=== PATIENT | male | born 1945 | race Caucasian/White ===

== ENCOUNTER 2016-06-26 09:02 | Day surgery (SDC) | payer OTHER, MEDICARE, BC ==
--- NOTE | 2016-06-22 09:25 | EKG REPORT ---
SEVERITY:- ABNORMAL ECG - SINUS RHYTHM RBBB AND LAFB : Confirmed by: Mario Meeks MD 22-Jun-2016 09:25:13
[2016-06-22 09:34] LABS: MEAN CORPUSCULAR HEMOGLOBIN 27.9 pg (27.0-33.4); MEAN CORPUSCULAR HGB CONC 34.2 g/dL (32.0-36.0); MEAN CORPUSCULAR VOLUME 82 fl (80-97); RED BLOOD COUNT 5.39 10^6/uL (4.35-5.55); RED CELL DISTRIBUTION WIDTH 13.8 % (11.5-14.0); WHITE BLOOD COUNT 6.1 10^3/uL (4.0-10.5)
[2016-06-22 09:40] LABS: APPEARANCE,URINE CLEAR; BILIRUBIN,URINE NEGATIVE (NEGATIVE); GLUCOSE, URINE >=500 mg/dL (NEGATIVE); KETONES,URINE NEGATIVE (NEGATIVE); LEUKOCYTE ESTERASE,URINE NEGATIVE (NEGATIVE); NITRITE,URINE NEGATIVE (NEGATIVE); PROTEIN,URINE NEGATIVE (NEGATIVE); URINE SPECIFIC GRAVITY 1.022; UROBILINOGEN,URINE NEGATIVE mg/dL (<2.0)
[2016-06-22 10:04] LABS: ANION GAP 10 (5-19); BLOOD UREA NITROGEN 22 mg/dL (7-20); CALCIUM 10.2 mg/dL (8.4-10.2); CARBON DIOXIDE 32 mmol/L (22-30); CHLORIDE 101 mmol/L (98-107); CREATININE RESULT 0.72 mg/dL (0.52-1.25); GLUCOSE 156 mg/dL (75-110); POTASSIUM 4.7 mmol/L (3.6-5.0); SODIUM 143.3 mmol/L (137-145)
[~2016-06-26 09:02] MED LIST: CLINDAMYCIN 600 MG/D5W RTU 600 MG/50 ML RTUPB IV PRN; LACTATED RINGERS 1000 ML IV PRN; LIDOCAINE 0.5% INJ-PF (5 MG/ML) 50 ML SDV SUBCUT PRN
[2016-06-26] MEDS ORDERED: BUPIVACAINE HCL 0.5 % INJ/PF 30 ML SDV ONE (09:14)
[2016-06-26] MEDS ORDERED: MIDAZOLAM 2 MG/2 ML INJ ONE (09:15)
[2016-06-26] MEDS ORDERED: PROPOFOL INJ 200 MG/20 ML VIAL IV ONE (09:15)
[2016-06-26] MEDS ORDERED: FENTANYL CITRATE INJ/PF 250 MCG/5 ML AMPULE ONE (09:15)
[2016-06-26] MEDS ORDERED: ALBUTEROL SULFATE 0.083% NEB 2.5 MG/3 ML AMPUL NEB ONE (09:15)
[2016-06-26] MEDS ORDERED: DEXMEDETOMIDINE INJ 80 MCG/20 ML VIAL IV ONE (09:15)
[2016-06-26] MEDS ORDERED: PROMETHAZINE HCL INJ 25 MG/1 ML VIAL IV PRN ×2 (09:41)
[2016-06-26] MEDS ORDERED: FENTANYL CITRATE INJ/PF 100 MCG/2 ML AMPUL IV PRN ×3 (09:41)
[2016-06-26] MEDS ORDERED: MORPHINE SULFATE 10 MG/ML INJ IV PRN ×2 (09:41→11:40)
[2016-06-26] MEDS ORDERED: DIPHENHYDRAMINE HCL 50 MG/ML VIAL IV PRN (09:41)
[2016-06-26] MEDS ORDERED: MEPERIDINE HCL/PF INJ 25 MG/1 ML DISP.SYRIN IV PRN (09:41)
[2016-06-26] MEDS ORDERED: OXYCODONE-ACETAMINOPHEN 5-325 MG TABLET PO PRN ×3 (09:41→11:40)
[2016-06-26] MEDS ORDERED: ONDANSETRON HCL INJ/PF 4 MG/2 ML SDV IV PRN (11:40)
--- NOTE | 2016-06-26 11:42 | PDOC DISCHARGE SUMMARY ---
Discharge Summary (SDC) - Discharge Final Diagnosis: ORIF Right Scaphoid Fracture w/ Repair SL Ligament Date of Surgery: 06/26/16 Discharge Date: 06/26/16 Condition: Good Treatment or Instructions: Schedule Follow Up w/ Dr. Jerardo Mcpherson @ [facility] to be seen in 10-14 days or as scheduled [place]: [place]: [place]: Keep splint clean/dry/intact. Ice and elevate May begin finger range of motion attempting to make full fist. Stool softener of choice when on pain medication. Prescriptions: Oxycodone HCl/Acetaminophen [Percocet 5-325 mg Tablet] 1 - 2 tab PO ASDIR PRN # 45 tablet PRN Reason: Referrals: SHRUTHI ZAFAR MD [Primary Care Provider] - Discharge Diet: As Tolerated Respiratory Treatments at Home: Deep Breathing/Coughing, Incentive Spirometer Discharge Activity: No Lifting Over 10 Pounds, No Lifting/Push/Pulling Report the Following to Your Physician Immediately: Fever over 101 Degrees, Unusual Bleeding, Redness, Swelling, Warmth, Increased Soreness, Numbness, Tingling Sensation
--- NOTE | 2016-06-26 11:51 | Operative Report ---
Operative Report DATE OF SURGERY: 06/26/16 PREOPERATIVE DIAGNOSIS: Right Scaphoid Fracture w/ Lunate Avulsion SL Ligament POSTOPERATIVE DIAGNOSIS: Same OPERATION: ORIF Right Scaphoid w/ SL Ligament Repair, Capsulodesis. PIN Neurectomy SURGEON: BEHZAD LEMA ANESTHESIA: GA COMPLICATIONS: None ESTIMATED BLOOD LOSS: Minimal PROCEDURE: Indication for above procedure: Pleasant 70-year-old male who sustained a fall onto his outstretched right wrist and left shoulder. Patient had been following up with me for his left shoulder after surgical arthroscopy. Radiographs were done at the time of injury demonstrating scaphoid waist fracture with possible avulsion fractures of the carpal bones. A CT scan was then done confirming these diagnoses at that point we discussed treatment options given the patient's history of previous scaphoid fracture I recommended operative intervention. Risks and benefits were explained to the patient patient verbalized understanding consented for the procedure. Procedure In Detail: Patient was seen and evaluated in the preoperative holding area. The RIGHT upper extremity was initialized and marked. Patient received 600 mg of clindamycin IV for bacterial prophylaxis. Patient was taken back to the operative room where transferred to the operative table and placed under general anesthesia. Once they were adequately anesthetized a nonsterile tourniquet was placed on the upper extremity. A surgical team debriefing was performed ensuring all instrumentation was available, the surgical procedure was discussed with possible concerns reviewed. The upper extremity was prepped with chlorhexidine and alcohol and draped in a sterile fashion. A timeout was done identifying correct patient, procedure and extremity everyone in attendance agree with this and verbalized no concerns. The extremity was exsanguinated the tourniquet was inflated to 250 mmHg. A longitudinal skin incision was made just ulnar to Listers tubercle. Blunt dissection was performed back to the retinaculum of the extensor tendons and the superficial radial nerve was elevated with a skin flap a radial direction. Any peripheral venous vasculature was carefully coagulated with bipolar cautery. EPL was identified the distal aspect of the retinaculum was released but not transposed. The DRC and DIC capsule was identified. And a Chavez/Livingston type capsulotomy was performed with a radial-based leaflet. I then identified a small avulsion of the scapholunate ligament from the dorsum of the lunate however a full-thickness tear was not appreciated. The small bone fragment was then excised. Any remaining nonviable soft tissue and bone fragments were removed. Under direct visualization the scaphoid fracture was identified and reduced. Utilizing the appropriate K wire for a mini Acumed screw this was placed in the center center position with the starting point just radial to the scapholunate ligament attachment. A second K wire was placed to act as an anti-rotational screw. AP, lateral and oblique fluoroscopy was obtained demonstrating reduction of the scaphoid fracture and appropriate placement of the K wire. I then measured the appropriate sized screw and subtracted 4 mm and thus a 24 mm screw would be the appropriate size. The proximal cortex countersink drill was then used progressing to the full length drill. I then placed a 24 mm mini Acutrak screw which resulted in interfragmentary compression at the fracture site. There is no evidence of screw penetration proximally or distally. The anti-rotational screw was then removed. C-arm fluoroscopy demonstrated compression at the fracture site with appropriate screw placement. With stress there was no evidence of scapholunate widening. Normal scapholunate angle on lateral fluoroscopy. Given the partial disruption of the scapholunate ligament but no dynamic or static instability appreciated on fluoroscopy I do not feel patient required percutaneous pinning and given his age this would cause stiffness. Thus I utilized a 2.4 mm micro-anchor from [employer] this was placed dorsally at the insertion of the scapholunate ligament on the lunate. Utilizing a Cameron-Rik stitch the partial scapholunate ligament tear was secured. The remaining 2 limbs were then passed through the dorsal capsule bringing the dorsal capsule to the lunate to act as a capsulodesis providing further fixation. The wound was then irrigated with normal saline. The capsule was then closed with 2-0 FiberWire and 3-0 Ethibond. The posterior interosseous nerve was identified within the fourth dorsal compartment and 1 cm was excised to aid in postoperative pain control and avoid postoperative neuroma. The wound was once again irrigated with normal saline. The tourniquet was then deflated and compression placed. Any peripheral vasculature was coagulated with bipolar cautery until the wound was dry. 20 mL of 0.5% Marcaine with an appropriate was injected for postoperative pain control. Subcutaneous tissues were closed with interrupted 3-0 Monocryl suture. Skin was closed a running subcuticular 3-0 Monocryl reinforced with Dermabond and Steri-Strips. Patient was placed in a plaster thumb spica splint. Sponge counts, instrument counts, needle counts counts were correct. Patient was then awoken from anesthesia. Transferred from the operating room table to the operating room stretcher. There was no intraoperative complications patient tolerated procedure well stable to PACU. Postoperative plan: Patient will follow-up in the office in 2 weeks. At which point we will obtain out of cast radiographs. Patient will then be transitioned to a thumb spica cast leaving the IP joint free. He will continue this for 6 weeks or until scaphoid union confirmed with CT scan.
[2016-06-26] MEDS ORDERED: ACETAMINOPHEN 100 ML IV ONE (11:53)
[2016-06-26] MEDS ORDERED: SUCCINYLCHOLINE CHLORIDE INJ 200 MG/10 ML VIAL ONE (12:01)
[2016-06-26] MEDS ORDERED: GLYCOPYRROLATE INJ 0.4 MG/2 ML VIAL ONE (12:01)
[2016-06-26] MEDS ORDERED: ONDANSETRON HCL INJ/PF 4 MG/2 ML SDV ONE (12:01)
[2016-06-26] MEDS ORDERED: LIDOCAINE 2% INJ-PF (20 MG/ML) 10 ML AMPUL ONE (12:01)
[2016-06-26 13:01] VITALS: BP 119/61
== END 2016-06-26 12:10 | disposition home or self-care (01) ==
LOC: OROUT 09:02
PROVIDERS: ATTEND Orthopaedic Surgery
PROC: 01B60ZZ Excision of Radial Nerve, Open Approach (ICD-10-PCS; 2016-06-26)
PROC: 0RQN0ZZ Repair Right Wrist Joint, Open Approach (ICD-10-PCS; 2016-06-26)
PROC: 0PSM04Z Reposition Right Carpal with Internal Fixation Device, Open Approach (ICD-10-PCS; principal; 2016-06-26 10:45)
DX: S62.001G Unspecified fracture of navicular [scaphoid] bone of right wrist, subsequent encounter for fracture with delayed healing (principal); X58.XXXD Exposure to other specified factors, subsequent encounter; M25.531 Pain in right wrist; E11.9 Type 2 diabetes mellitus without complications; Z87.11 Personal history of peptic ulcer disease; M25.512 Pain in left shoulder; M25.561 Pain in right knee; Z88.0 Allergy status to penicillin; Z88.2 Allergy status to sulfonamides; Z88.7 Allergy status to serum and vaccine; Z79.4 Long term (current) use of insulin; Z79.84 Long term (current) use of oral hypoglycemic drugs; Z79.899 Other long term (current) drug therapy
CPT/HCPCS: 93005; 36415; 82962; 85027; 80048; 81001; 83036; 71020; 73100; 93010; 25628; 64772; 25320; C1713 ×2; C1769; J2250; J3010; J0330; J2405; J2704; J3490; J0131; 01830

== ENCOUNTER 2016-08-10 19:04 | Inpatient (IN) | payer MEDICARE, BC ==
[2016-08-10] MEDS ORDERED: RINGERS SOLUTION,LACTATED 1,000 ML IV ONE (19:18)
[2016-08-10] MEDS ORDERED: CEFEPIME 2 GM/D5W RTU 50 ML IV ONE (19:19)
[2016-08-10 20:06] LABS: VENOUS BLOOD HCO3 26.1 mmol/L (20-32); VENOUS BLOOD PCO2 34.9 mmHg (35-63); VENOUS BLOOD PH 7.49 (7.30-7.42)
[2016-08-10 20:08] LABS: HEMATOCRIT 35.4 % (37.9-51.0); HGB HCT DIFFERENCE 0.6; MEAN CORPUSCULAR HEMOGLOBIN 27.3 pg (27.0-33.4); MEAN CORPUSCULAR HGB CONC 33.9 g/dL (32.0-36.0); MEAN CORPUSCULAR VOLUME 81 fl (80-97); RED CELL DISTRIBUTION WIDTH 13.9 % (11.5-14.0); WHITE BLOOD COUNT 7.8 10^3/uL (4.0-10.5)
[2016-08-10] MEDS ORDERED: VANCOMYCIN HCL INJ 1000 MG VIAL IV ONE (20:11)
[2016-08-10] MEDS ORDERED: LEVOFLOXACIN 750 MG/D5W RTU 150 ML IV ONE (20:11)
--- NOTE | 2016-08-10 20:11 | ER Document Report ---
ED General - General Chief Complaint: Fever Stated Complaint: POSSIBLE FEVER Notes: Patient is a 70-year-old male with past medical history of hypertension, prostatitis, currently being treated with ciprofloxacin who presents with a fever, cough, sputum production, and lethargy. The patient reports that over the past 2 days he has had a progressively worsening cough and developed a fever today. Family states that patient has had a progressive decline in general over the past 5 days to a week and has been appearing more lethargic and pale. No history of similar symptoms in the past. He has not recently seen his primary care doctor regarding today's concerns although he has been seen for the concerns of acute prostatitis. Nothing has been noted to improve or worsen his symptoms. He has not had any associated vomiting or diarrhea. He has had rigors and chills. TRAVEL OUTSIDE OF THE [place] IN LAST 30 DAYS: No - Related Data Allergies/Adverse Reactions: amoxicillin [Amoxicillin] Allergy (Severe, Verified 08/11/16 00:30) rash Influenza Vacc,Tri 2009 (Live) [From [employer] [id number]] Allergy (Severe, Verified 03/13/16 06:07) n and v Sulfa (Sulfonamide Antibiotics) Allergy (Verified 06/22/16 08:48) rash Home Medications: Current Home Medications Acetaminophen [Tylenol Arthritis 650 mg Tablet] 650 mg PO Q4HP PRN 08/10/16 [ History] Insulin Glargine,Hum.rec.anlog [Lantus Insulin 100 Unit/mL] 55 unit SUBCUT QHS 08/10/16 [History] Metformin HCl 750 mg PO DAILY 08/10/16 [History] Past Medical History - General Information source: Patient, Relative - Social History Smoking Status: Never Smoker Frequency of alcohol use: None Drug Abuse: None Lives with: Spouse/Significant other Family History: Reviewed & Not Pertinent - Past Medical History Cardiac Medical History: Denies: Hx Coronary Artery Disease, Hx Heart Attack, Hx Hypertension Pulmonary Medical History: Denies: Hx Asthma, Hx Bronchitis, Hx COPD - chemical burn to lungs, Hx Pneumonia Neurological Medical History: Denies: Hx Cerebrovascular Accident, Hx Seizures Endocrine Medical History: Reports: Hx Diabetes Mellitus Type 2 GI Medical History: Reports: Hx Ulcer. Denies: Hx Hepatitis, Hx Hiatal Hernia Musculoskeltal Medical History: Reports Hx Arthritis Infectious Medical History: Denies: Hx Hepatitis Past Surgical History: Denies: Hx Open Heart Surgery, Hx Pacemaker - Immunizations Hx Diphtheria, Pertussis, Tetanus Vaccination: Yes Hx Pneumococcal Vaccination: 01/21/16 Review of Systems - Review of Systems Notes: Constitutional: Positive for fever. HENT: Negative for sore throat. Eyes: Negative for visual changes. Cardiovascular: Negative for chest pain. Respiratory: Positive for shortness of breath. Gastrointestinal: Negative for abdominal pain, vomiting or diarrhea. Genitourinary: Positive for dysuria. Musculoskeletal: Negative for back pain. Skin: Negative for rash. Neurological: Negative for headaches, weakness or numbness. 10 point ROS negative except as marked above and in HPI. Physical Exam - Vital signs Vitals: Temp Pulse Resp BP Pulse Ox 100.6 F H 110 H 18 116/59 L 89 L 08/10/16 19:18 08/10/16 19:18 08/10/16 19:18 08/10/16 19:18 08/10/16 19:18 Interpretation: Tachycardic, Hypoxic, Tachypneic, Febrile Notes: PHYSICAL EXAMINATION: GENERAL: Ill in appearance, pale, rigors HEAD: Atraumatic, normocephalic. EYES: Pupils equal round and reactive to light, extraocular movements intact, sclera anicteric, conjunctiva are normal. ENT: nares patent, oropharynx clear without exudates. Dry mucous membranes. NECK: Normal range of motion, supple without lymphadenopathy LUNGS: Breath sounds are globally diminished on the right relative to the left. HEART: Regular tachycardia without murmurs ABDOMEN: Soft, nontender, normoactive bowel sounds. No guarding, no rebound. No masses appreciated. EXTREMITIES: Normal range of motion, trace edema in the bilateral lower extremities is equal and symmetric NEUROLOGICAL: No focal neurological deficits. Moves all extremities spontaneously and on command. PSYCH: Somewhat lethargic but does respond all questions appropriately. SKIN: Warm, Dry, normal turgor, no rashes or lesions noted. Course - Re-evaluation Re-evalutation: 08/10/161939 Patient presents in sepsis likely secondary to a pneumonia based on mild tachypnea, hypoxemia without a history of oxygen dependence, and a fever up to 103.2F as recorded by EMS prior to patient's arrival. He is overall ill appearance at time of assessment and is somewhat lethargic. He has diminished breath sounds on the right particularly in the right base. He does have an oxygen dependence. When I shut his oxygen off and the room he desaturates to 86 % and returned to 95-96% on 2 L by nasal cannula. He has no focal abdominal tenderness, rebound or guarding to suggest acute intra-abdominal pathology as the etiology of today's presentation. No skin findings. He is currently being treated for a possible prostatitis and this could also be an alternative source although this should not be causing hypoxemia or tachypnea. Will begin broad- spectrum antibiotics including cefepime, levofloxacin and vancomycin. He will be started on 2 L of lactated Ringer's wide open. Cultures have been sent as well as a sepsis lactate screen and venous blood gas. Patient will require admission to the hospital. He is in guarded condition at this time and will require frequent reassessments. 08/10/16 20:57 Laboratories demonstrate a lactate elevation at 2.8 consistent with sepsis although not severe sepsis. No leukocytosis. Chest x-ray is read as clear and I agree based on review although again clinically his symptoms are most consistent with a community-acquired pneumonia. His blood pressure has now normalized after receiving a total of a liter of fluid. His heart rate likewise has normalized. Mental status has also improved and he is now conversing more easily. Skin color no longer pale. Patient overall appears much improved at this time relative to initial assessment. Will discuss that with the hospitalist for admission 08/10/16 21:11 I discussed this case with Dr. Christy who is accepted for admission at this time. - Vital Signs Vital signs: Temp Pulse Resp BP Pulse Ox 98.6 F 85 20 111/64 98 08/11/16 00:21 08/11/16 02:00 08/11/16 00:21 08/11/16 00:21 08/11/16 00:21 - Laboratory Result Diagrams: 08/10/16 19:50 08/10/16 19:50 Laboratory results interpreted by me: 08/10/16 08/10/16 08/10/16 19:50 19:50 19:50 Hgb 12.0 L Hct 35.4 L Plt Count 72 L Seg Neuts % (Manual) 94 H Band Neutrophils % 1 L Lymphocytes % (Manual) 3 L Monocytes % (Manual) 2 L Abs Lymphs (Manual) 0.2 L VBG pH VBG pCO2 Sodium 134.8 L Chloride 95 L BUN 50 H Glucose 312 H Lactic Acid 2.8 H Calcium 7.9 L Total Bilirubin 1.6 H Direct Bilirubin 1.1 H AST 71 H Alkaline Phosphatase 252 H Total Protein 5.0 L Albumin 2.4 L Urine Glucose (UA) Urine Blood Urine Urobilinogen Ur Leukocyte Esterase 08/10/16 08/10/16 19:50 19:50 Hgb Hct Plt Count Seg Neuts % (Manual) Band Neutrophils % Lymphocytes % (Manual) Monocytes % (Manual) Abs Lymphs (Manual) VBG pH 7.49 H VBG pCO2 34.9 L Sodium Chloride BUN Glucose Lactic Acid Calcium Total Bilirubin Direct Bilirubin AST Alkaline Phosphatase Total Protein Albumin Urine Glucose (UA) >=500 H Urine Blood LARGE H Urine Urobilinogen 2.0 H Ur Leukocyte Esterase SMALL H - Diagnostic Test Radiology reviewed: Image reviewed, Reports reviewed Radiology results interpreted by me: 08/11/16 03:37 Chest x-ray: No acute infiltrate - EKG Interpretation by Me Additional EKG results interpreted by me: 08/11/16 03:38 Normal sinus rhythm. Rate 95. Right bundle branch block. No ST elevations or depressions. QTC is 483. Critical Care Note - Critical Care Note Total time excluding time spent on procedures (mins): 40 Comments: Critical care time spent obtaining history from patient or surrogate, discussions with consultants, development of treatment plan with patient or surrogate, evaluation of patient's response to treatment, examination of patient , ordering and performing treatments and interventions, ordering and review of laboratory studies, re-evaluation of patient's condition, ordering and review of radiographic studies and review of old charts Discharge - Discharge Clinical Impression: Pneumonia, Hypoxemia Sepsis Qualifiers: Sepsis type: sepsis due to unspecified organism Qualified Code(s): A41.9 - Sepsis, unspecified organism Hypotension Qualifiers: Hypotension type: unspecified hypotension type Qualified Code(s): I95.9 - Hypotension, unspecified Condition: Fair Disposition: ADMITTED INPATIENT Admitting Provider: [facility] Unit Admitted: [facility]
[2016-08-10 20:12] LABS: APPEARANCE,URINE SLIGHTLY-CLOUDY; BILIRUBIN,URINE NEGATIVE (NEGATIVE); GLUCOSE, URINE >=500 mg/dL (NEGATIVE); KETONES,URINE NEGATIVE (NEGATIVE); LEUKOCYTE ESTERASE,URINE SMALL (NEGATIVE); NITRITE,URINE NEGATIVE (NEGATIVE); PROTEIN,URINE NEGATIVE (NEGATIVE); URINE SPECIFIC GRAVITY 1.024
[2016-08-10 20:19] LABS: ALANINE AMINOTRANSFERASE 70 U/L (21-72); ALBUMIN 2.4 g/dL (3.5-5.0); ALKALINE PHOSPHATASE 252 U/L (38-126); ANION GAP 12 (5-19); ASPARTATE AMINO TRANSFERASE 71 U/L (17-59); BILIRUBIN,DIRECT 1.1 mg/dL (0.0-0.4); BILIRUBIN,TOTAL 1.6 mg/dL (0.2-1.3); BLOOD UREA NITROGEN 50 mg/dL (7-20); CALCIUM 7.9 mg/dL (8.4-10.2); CARBON DIOXIDE 28 mmol/L (22-30); CHLORIDE 95 mmol/L (98-107); CREATININE RESULT 0.97 mg/dL (0.52-1.25); GLUCOSE 312 mg/dL (75-110); POTASSIUM 3.6 mmol/L (3.6-5.0); SODIUM 134.8 mmol/L (137-145)
[2016-08-10 20:31] LABS: BAND NEUTROPHILS % (MANUAL) 1 % (3-5); BASOPHILS % (MANUAL) 0 % (0-2); EOSINOPHILS % (MANUAL) 0 % (0-6); LYMPHOCYTES % (MANUAL) 3 % (13-45); TOTAL CELLS COUNTED 100
[2016-08-10 20:32] LABS: MICROCYTOSIS SLIGHT
--- NOTE | 2016-08-10 21:57 | EKG REPORT ---
SEVERITY:- ABNORMAL ECG - SINUS RHYTHM RBBB AND LAFB : Confirmed by: Tess Ramirez MD 10-Aug-2016 21:56:44
[2016-08-10] MEDS: ACETAMINOPHEN 325 MG TABLET PO PRN (22:37)
[2016-08-11] MEDS ORDERED: DEXTROSE 50%-WATER 25 GM/50 ML DISP.SYRIN IV PRN ×2 (00:28)
[2016-08-11] MEDS ORDERED: DEXTROSE 40% GEL 15 GM TUBE PO PRN ×2 (00:28)
[2016-08-11] MEDS ORDERED: GLUCAGON,HUMAN RECOMB 1 MG INJ IM PRN (00:28)
[2016-08-11] MEDS ORDERED: IPRATROPIUM/ALBUTEROL 0.5-2.5 MG/3 ML AMPUL NEB PRN (00:32)
[2016-08-11] MEDS ORDERED: GUAIFENESIN SYRP 200 MG/10 ML UDC PO PRN (00:32)
[2016-08-11 00:41] LABS: ADD ON TESTING BLD IN LAB ACKNOWLEDGE
[2016-08-11 00:57] LABS: MAGNESIUM 2.3 mg/dL (1.6-2.3)
[2016-08-11] MEDS ORDERED: INSULIN GLARGINE,HUM.REC.ANLOG 1,000 UNIT/10 ML UNIT SUBCUT ONE (01:15)
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
[2016-08-11] MEDS: OXYCODONE HCL IR 5 MG TABLET PO PRN ×3 (01:53→17:17)
[2016-08-11] MEDS ORDERED: CEFEPIME INJ 2 GM VIAL ONE (02:46)
[2016-08-11] MEDS ORDERED: CEFEPIME INJ 2 GM VIAL IV PRN (05:00)
[2016-08-11 05:49] LABS: ABSOLUTE LYMPHOCYTES (AUTO) 0.9 10^3/uL (0.5-4.7); ABSOLUTE MONOCYTES (AUTO) 1.1 10^3/uL (0.1-1.4); ABSOLUTE NEUT (AUTO) 9.1 10^3/uL (1.7-8.2); BASOPHILS % (AUTO) 0.1 % (0-2); EOSINOPHILS % (AUTO) 0.4 % (0-6); HEMATOCRIT 32.9 % (37.9-51.0); HEMOGLOBIN 11.3 g/dL (13.5-17.0); LYMPHOCYTES % (AUTO) 7.8 % (13-45); MEAN CORPUSCULAR HEMOGLOBIN 27.4 pg (27.0-33.4); MEAN CORPUSCULAR HGB CONC 34.4 g/dL (32.0-36.0); MEAN CORPUSCULAR VOLUME 80 fl (80-97); MONOCYTES % (AUTO) 9.5 % (3-13); RED BLOOD COUNT 4.13 10^6/uL (4.35-5.55); RED CELL DISTRIBUTION WIDTH 13.7 % (11.5-14.0); SEGMENTED NEUTROPHILS % (AUTO) 82.2 % (42-78); WHITE BLOOD COUNT 11.1 10^3/uL (4.0-10.5)
[2016-08-11] MEDS ORDERED: CEFEPIME 2 GM/D5W RTU 2 GM/50 ML RTUPB IV SCH (06:00)
[2016-08-11 06:01] LABS: ALANINE AMINOTRANSFERASE 96 U/L (21-72); ALBUMIN 2.3 g/dL (3.5-5.0); ALKALINE PHOSPHATASE 259 U/L (38-126); ANION GAP 11 (5-19); ASPARTATE AMINO TRANSFERASE 92 U/L (17-59); BILIRUBIN,DIRECT 0.9 mg/dL (0.0-0.4); BILIRUBIN,TOTAL 1.3 mg/dL (0.2-1.3); BLOOD UREA NITROGEN 45 mg/dL (7-20); CARBON DIOXIDE 28 mmol/L (22-30); CHLORIDE 96 mmol/L (98-107); CREATININE RESULT 0.87 mg/dL (0.52-1.25); GLUCOSE 105 mg/dL (75-110); POTASSIUM 4.1 mmol/L (3.6-5.0); SODIUM 134.9 mmol/L (137-145); TOTAL PROTEIN 4.8 g/dL (6.3-8.2)
[2016-08-11] MEDS: AZITHROMYCIN 500 MG in DEXTROSE 5%-WATER 250 ML IV SCH (09:26)
[2016-08-11] MEDS: ACETAMINOPHEN 325 MG TABLET PO PRN (11:54)
[2016-08-11] MEDS: INSULIN LISPRO 100 UNIT/ML 3 ML VIAL SUBCUT PRN (12:36)
--- NOTE | 2016-08-11 12:54 | PDOC PROGRESS REPORT ---
Subjective Progress Note for:: 08/11/16 Subjective:: The patient is currently lying in bed. Family is present and active in the patient's care. Patient does complain of lower back pain. The patient denies any nausea, vomiting, diarrhea, shortness of breath, dizziness, chest pain, heart palpitations, fevers, or chills. The patient has remained afebrile. Blood pressures have been in a good range. The patient voices no other concerns at this time. Review of systems: The rest of the review of systems is negative. Physical Exam Vital Signs: Temp Pulse Resp BP Pulse Ox 97.9 F 62 16 126/75 H 99 08/11/16 12:00 08/11/16 12:00 08/11/16 12:00 08/11/16 12:00 08/11/16 12:00 Intake & Output 08/09/16 08/10/16 08/11/16 23:59 23:59 23:59 Intake Total 310 Balance 310 Weight 80.2 kg General appearance: PRESENT: no acute distress, cooperative, well-developed, well-nourished Head exam: PRESENT: atraumatic, normocephalic Eye exam: PRESENT: conjunctiva pink, EOMI, PERRLA. ABSENT: scleral icterus Ear exam: PRESENT: normal external ear exam Mouth exam: PRESENT: moist, tongue midline Neck exam: ABSENT: carotid bruit, JVD, lymphadenopathy, thyromegaly Respiratory exam: PRESENT: clear to auscultation cesar, symmetrical, unlabored. ABSENT: rales, rhonchi, tachypnea, wheezes Cardiovascular exam: PRESENT: RRR. ABSENT: diastolic murmur, rubs, systolic murmur Pulses: PRESENT: normal dorsalis pedis pul Vascular exam: PRESENT: normal capillary refill GI/Abdominal exam: PRESENT: normal bowel sounds, soft. ABSENT: distended, guarding, mass, organolmegaly, rebound, tenderness Rectal exam: PRESENT: deferred Extremities exam: PRESENT: full ROM. ABSENT: calf tenderness, clubbing, pedal edema Neurological exam: PRESENT: alert, awake, oriented to person, oriented to place , oriented to time, oriented to situation, CN II-XII grossly intact. ABSENT: motor sensory deficit Psychiatric exam: PRESENT: appropriate affect, normal mood. ABSENT: homicidal ideation, suicidal ideation Skin exam: PRESENT: dry, intact, warm. ABSENT: cyanosis, rash Results Laboratory Results: 08/11/16 04:27 08/11/16 04:27 08/11/16 08/11/16 08/11/16 00:17 04:27 04:27 WBC 11.1 H RBC 4.13 L Hgb 11.3 L Hct 32.9 L MCV 80 MCH 27.4 MCHC 34.4 RDW 13.7 Plt Count 71 L Seg Neutrophils % 82.2 H Lymphocytes % 7.8 L Monocytes % 9.5 Eosinophils % 0.4 Basophils % 0.1 Absolute Neutrophils 9.1 H Absolute Lymphocytes 0.9 Absolute Monocytes 1.1 Absolute Eosinophils 0.0 Absolute Basophils 0.0 Sodium 134.9 L Potassium 4.1 Chloride 96 L Carbon Dioxide 28 Anion Gap 11 BUN 45 H Creatinine 0.87 Est GFR ( Amer) > 60 Est GFR (Non-Af Amer) > 60 Glucose 105 Lactic Acid 1.4 Calcium 8.0 L Total Bilirubin 1.3 AST 92 H ALT 96 H Alkaline Phosphatase 259 H Total Protein 4.8 L Albumin 2.3 L Impressions: Chest X-Ray 08/10/16 20:07 IMPRESSION: NO ACUTE RADIOGRAPHIC FINDING IN THE CHEST. NO SIGNIFICANT CHANGE FROM PRIOR STUDIES. Assessment & Plan - Diagnosis (1) UTI (urinary tract infection) Qualifiers: Urinary tract infection type: site unspecified Is this a current diagnosis for this admission?: YesPlan: Upon review of the records available through the patient's private portal it appears that his urinary tract infection was Klebsiella. Will continue Rocephin for now. Culture here is negative. Apparently the patient also had a renal ultrasound done yesterday at [facility] the patient stated that his verbal results were "fine". (2) Acute encephalopathy Is this a current diagnosis for this admission?: YesPlan: Secondary to #1 this is resolved. (3) Elevated LFTs Is this a current diagnosis for this admission?: YesPlan: Bilirubin actually has improved. Looking back the patient has had 2 Percocet prescriptions in the last couple months. This may be due to acetaminophen. No abdominal tenderness will continue to follow this. (4) Thrombocytopenia Is this a current diagnosis for this admission?: YesPlan: Given findings of elevated LFTs will obtain abdominal ultrasound and follow. (7) Chronic back pain Qualifiers: Back pain location: low back pain Back pain laterality: unspecified Sciatica presence: without sciatica Qualified Code(s): M54.5 - Low back pain; G89.29 - Other chronic pain Is this a current diagnosis for this admission?: Yes (8) Diabetes mellitus type 1 Qualifiers: Diabetes mellitus complication status: with neurologic complications Diabetes mellitus complication detail: with unspecified neuropathy Qualified Code(s): E10.40 - Type 1 diabetes mellitus with diabetic neuropathy, unspecified Is this a current diagnosis for this admission?: Yes (9) S/P lobectomy of lung Is this a current diagnosis for this admission?: Yes - Time Time Spent with patient: 35 or more minutes Medications reviewed and adjusted accordingly: Yes Anticipated discharge: Home Within: within 24 hours, within 48 hours Disposition: The patient is a full code. Pending patient's symptomatology and diagnostic findings will reevaluate in the a.m.
[2016-08-11] MEDS: CEFEPIME HCL 2 GM in DEXTROSE 5%-WATER 50 ML IV SCH (17:20)
[2016-08-11] MEDS: MORPHINE SULFATE 10 MG/ML INJ IV PRN (20:12)
[2016-08-11] MEDS: INSULIN GLARGINE,HUM.REC.ANLOG 300 UNIT/3 ML INSULN.PEN SUBCUT SCH (21:47)
[2016-08-12] MEDS: OXYCODONE HCL IR 5 MG TABLET PO PRN (01:30)
[2016-08-12] MEDS: MORPHINE SULFATE 10 MG/ML INJ IV PRN ×2 (04:44→17:14)
[2016-08-12 05:09] LABS: ALANINE AMINOTRANSFERASE 76 U/L (21-72); ALBUMIN 2.4 g/dL (3.5-5.0); ALKALINE PHOSPHATASE 261 U/L (38-126); ANION GAP 11 (5-19); ASPARTATE AMINO TRANSFERASE 44 U/L (17-59); BILIRUBIN,DIRECT 0.6 mg/dL (0.0-0.4); BILIRUBIN,TOTAL 1.2 mg/dL (0.2-1.3); BLOOD UREA NITROGEN 28 mg/dL (7-20); CALCIUM 8.1 mg/dL (8.4-10.2); CARBON DIOXIDE 28 mmol/L (22-30); CHLORIDE 97 mmol/L (98-107); CREATININE RESULT 0.78 mg/dL (0.52-1.25); GLUCOSE 127 mg/dL (75-110); MAGNESIUM 2.3 mg/dL (1.6-2.3); POTASSIUM 4.4 mmol/L (3.6-5.0); SODIUM 135.9 mmol/L (137-145); TOTAL PROTEIN 4.9 g/dL (6.3-8.2)
[2016-08-12] MEDS: CEFEPIME HCL 2 GM in DEXTROSE 5%-WATER 50 ML IV SCH (05:50)
[2016-08-12 06:40] LABS: HEMATOCRIT 32.1 % (37.9-51.0); HEMOGLOBIN 11.2 g/dL (13.5-17.0); HGB HCT DIFFERENCE 1.5; MEAN CORPUSCULAR HEMOGLOBIN 27.7 pg (27.0-33.4); MEAN CORPUSCULAR HGB CONC 34.8 g/dL (32.0-36.0); MEAN CORPUSCULAR VOLUME 80 fl (80-97); RED BLOOD COUNT 4.04 10^6/uL (4.35-5.55); RED CELL DISTRIBUTION WIDTH 14.4 % (11.5-14.0)
[2016-08-12] MEDS: AZITHROMYCIN 500 MG in DEXTROSE 5%-WATER 250 ML IV SCH (10:18)
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
--- NOTE | 2016-08-12 12:06 | PDOC PROGRESS REPORT ---
Subjective Progress Note for:: 08/12/16 Subjective:: The patient is currently lying in bed. Patient does complain of lower back pain but notes improvement. The patient denies any nausea, vomiting, diarrhea, shortness of breath, dizziness, chest pain, heart palpitations, fevers, or chills. The patient has remained afebrile. Blood pressures have been in a good range. The patient voices no other concerns at this time. Review of systems: The rest of the review of systems is negative. Physical Exam Vital Signs: Temp Pulse Resp BP Pulse Ox 98.2 F 81 16 120/65 99 08/12/16 08:00 08/12/16 07:48 08/12/16 07:48 08/12/16 07:48 08/12/16 07:48 Intake & Output 08/10/16 08/11/16 08/12/16 23:59 23:59 23:59 Intake Total 1080 210 Output Total 900 Balance 1080 -690 Weight 80.2 kg 79.6 kg General appearance: PRESENT: no acute distress, cooperative, well-developed, well-nourished Head exam: PRESENT: atraumatic, normocephalic Eye exam: PRESENT: conjunctiva pink, EOMI, PERRLA. ABSENT: scleral icterus Ear exam: PRESENT: normal external ear exam Mouth exam: PRESENT: moist, tongue midline Neck exam: ABSENT: carotid bruit, JVD, lymphadenopathy, thyromegaly Respiratory exam: PRESENT: clear to auscultation cesar, symmetrical, unlabored. ABSENT: rales, rhonchi, tachypnea, wheezes Cardiovascular exam: PRESENT: RRR. ABSENT: diastolic murmur, rubs, systolic murmur Pulses: PRESENT: normal dorsalis pedis pul Vascular exam: PRESENT: normal capillary refill GI/Abdominal exam: PRESENT: normal bowel sounds, soft. ABSENT: distended, guarding, mass, organolmegaly, rebound, tenderness Rectal exam: PRESENT: deferred Extremities exam: PRESENT: full ROM. ABSENT: calf tenderness, clubbing, pedal edema Neurological exam: PRESENT: alert, awake, oriented to person, oriented to place , oriented to time, oriented to situation, CN II-XII grossly intact. ABSENT: motor sensory deficit Psychiatric exam: PRESENT: appropriate affect, normal mood. ABSENT: homicidal ideation, suicidal ideation Skin exam: PRESENT: dry, intact, warm. ABSENT: cyanosis, rash Results Laboratory Results: 08/12/16 06:16 08/12/16 04:29 08/12/16 08/12/16 08/12/16 04:29 04:29 06:16 WBC Cancelled 9.0 RBC Cancelled 4.04 L Hgb Cancelled 11.2 L Hct Cancelled 32.1 L MCV Cancelled 80 MCH Cancelled 27.7 MCHC Cancelled 34.8 RDW Cancelled 14.4 H Plt Count Cancelled 69 L Sodium 135.9 L Potassium 4.4 Chloride 97 L Carbon Dioxide 28 Anion Gap 11 BUN 28 H Creatinine 0.78 Est GFR ( Amer) > 60 Est GFR (Non-Af Amer) > 60 Glucose 127 H Calcium 8.1 L Magnesium 2.3 Total Bilirubin 1.2 AST 44 ALT 76 H Alkaline Phosphatase 261 H Total Protein 4.9 L Albumin 2.4 L Impressions: Chest X-Ray 08/10/16 20:07 IMPRESSION: NO ACUTE RADIOGRAPHIC FINDING IN THE CHEST. NO SIGNIFICANT CHANGE FROM PRIOR STUDIES. Abdomen Ultrasound 08/11/16 00:00 IMPRESSION: CHOLELITHIASIS WITHOUT SONOGRAPHIC EVIDENCE OF CHOLECYSTITIS. MILD SPLENOMEGALY. Assessment & Plan - Diagnosis (1) UTI (urinary tract infection) Qualifiers: Urinary tract infection type: acute cystitis Hematuria presence: without hematuria Qualified Code(s): N30.00 - Acute cystitis without hematuria Is this a current diagnosis for this admission?: YesPlan: Upon review of the records available through the patient's private portal it appears that his urinary tract infection was Klebsiella. Will transition to Ceftin. Culture here is negative. Apparently the patient also had a renal ultrasound done yesterday at [facility] the patient stated that his verbal results were "fine". (2) Acute encephalopathy Is this a current diagnosis for this admission?: YesPlan: Secondary to #1 this is resolved. (3) Elevated LFTs Is this a current diagnosis for this admission?: YesPlan: Bilirubin actually has improved. Given the elevation alkaline phosphatase and findings on ultrasound splenomegaly discussed the case with oncology will proceed with abdominal CT. (4) Thrombocytopenia Is this a current diagnosis for this admission?: YesPlan: Given findings of elevated LFTs as well did consult hematology (5) Pain in left shoulder Qualifiers: Chronicity: chronic Qualified Code(s): M25.512 - Pain in left shoulder; G89.29 - Other chronic pain Is this a current diagnosis for this admission?: Yes (6) Pain in right elbow Is this a current diagnosis for this admission?: Yes (7) Chronic back pain Qualifiers: Back pain location: low back pain Back pain laterality: unspecified Sciatica presence: without sciatica Qualified Code(s): M54.5 - Low back pain; G89.29 - Other chronic pain Is this a current diagnosis for this admission?: Yes (8) Diabetes mellitus type 1 Qualifiers: Diabetes mellitus complication status: with neurologic complications Diabetes mellitus complication detail: with unspecified neuropathy Qualified Code(s): E10.40 - Type 1 diabetes mellitus with diabetic neuropathy, unspecified Is this a current diagnosis for this admission?: Yes (9) S/P lobectomy of lung Is this a current diagnosis for this admission?: Yes - Time Time Spent with patient: 25-34 minutes Medications reviewed and adjusted accordingly: Yes Anticipated discharge: Home
[2016-08-12] MEDS ORDERED: ONDANSETRON HCL INJ/PF 4 MG/2 ML SDV IV ONE (13:27)
[2016-08-12] MEDS ORDERED: FLUCONAZOLE 200 MG/NS RTU 100 ML IV SCH (18:00)
[2016-08-12] MEDS ORDERED: ERTAPENEM SODIUM 1 GM in NORMAL SALINE 50 ML IV SCH (18:00)
[2016-08-12] MEDS ORDERED: CEFUROXIME 500 MG TABLET PO SCH (18:00)
[2016-08-12] MEDS ORDERED: FLUCONAZOLE 200 MG/NS RTU 100 ML IV ONE (20:16)
[2016-08-12] MEDS ORDERED: ERTAPENEM SODIUM INJ 1 GM VIAL ONE (20:17)
[2016-08-12] MEDS ORDERED: CEFEPIME 1 GM/D5W RTU 50 ML IV SCH (22:00)
[2016-08-12] MEDS ORDERED: CEFEPIME 2 GM/D5W RTU 50 ML IV SCH (22:00)
[2016-08-12] MEDS ORDERED: CEFEPIME INJ 1 GM VIAL IV PRN (22:07)
[2016-08-12] MEDS: INSULIN GLARGINE,HUM.REC.ANLOG 300 UNIT/3 ML INSULN.PEN SUBCUT SCH (22:47)
[2016-08-12] MEDS: ACETAMINOPHEN 325 MG TABLET PO PRN (23:26)
[2016-08-13 07:54] LABS: HEMATOCRIT 32.6 % (37.9-51.0); HEMOGLOBIN 11.2 g/dL (13.5-17.0); MEAN CORPUSCULAR HEMOGLOBIN 27.6 pg (27.0-33.4); MEAN CORPUSCULAR HGB CONC 34.3 g/dL (32.0-36.0); MEAN CORPUSCULAR VOLUME 81 fl (80-97); RED BLOOD COUNT 4.05 10^6/uL (4.35-5.55); RED CELL DISTRIBUTION WIDTH 13.5 % (11.5-14.0); WHITE BLOOD COUNT 8.4 10^3/uL (4.0-10.5)
--- NOTE | 2016-08-13 07:55 | PDOC PROGRESS REPORT ---
Subjective Progress Note for:: 08/13/16 Subjective:: Feeling better this am, CT imaging reviewed and I went over results extensively w/ family spent >35 min in discussion. No evidence malignancy but there was evidence of pyelonephritis. Physical Exam Vital Signs: Temp Pulse Resp BP Pulse Ox 98.9 F 77 16 109/72 100 08/13/16 02:58 08/13/16 02:58 08/13/16 02:58 08/13/16 02:58 08/13/16 02:58 Intake & Output 08/12/16 08/13/16 08/14/16 06:59 06:59 06:59 Intake Total 980 935 Output Total 900 1350 Balance 80 -415 Weight 79.6 kg 78.9 kg General appearance: PRESENT: no acute distress, well-developed, well-nourished Head exam: PRESENT: atraumatic, normocephalic Eye exam: PRESENT: conjunctiva pink, EOMI, PERRLA. ABSENT: scleral icterus Ear exam: PRESENT: normal external ear exam Mouth exam: PRESENT: moist, tongue midline Neck exam: ABSENT: carotid bruit, JVD, lymphadenopathy, thyromegaly Respiratory exam: PRESENT: clear to auscultation cesar. ABSENT: rales, rhonchi, wheezes Cardiovascular exam: PRESENT: RRR. ABSENT: diastolic murmur, rubs, systolic murmur Pulses: PRESENT: normal dorsalis pedis pul Vascular exam: PRESENT: normal capillary refill GI/Abdominal exam: PRESENT: normal bowel sounds, soft. ABSENT: distended, guarding, mass, organolmegaly, rebound, tenderness Rectal exam: PRESENT: deferred Extremities exam: PRESENT: full ROM. ABSENT: calf tenderness, clubbing, pedal edema Neurological exam: PRESENT: alert, awake, oriented to person, oriented to place , oriented to time, oriented to situation, CN II-XII grossly intact. ABSENT: motor sensory deficit Psychiatric exam: PRESENT: appropriate affect, normal mood. ABSENT: homicidal ideation, suicidal ideation Skin exam: PRESENT: dry, intact, warm. ABSENT: cyanosis, rash Results Laboratory Results: 08/12/16 04:29 Iron 28.2 L TIBC 213 L % Saturation 13 Ferritin 833.00 H Vitamin B12 526.0 Impressions: Chest X-Ray 08/10/16 20:07 IMPRESSION: NO ACUTE RADIOGRAPHIC FINDING IN THE CHEST. NO SIGNIFICANT CHANGE FROM PRIOR STUDIES. Abdomen Ultrasound 08/11/16 00:00 IMPRESSION: CHOLELITHIASIS WITHOUT SONOGRAPHIC EVIDENCE OF CHOLECYSTITIS. MILD SPLENOMEGALY. Chest CT 08/12/16 00:00 IMPRESSION: No acute findings in the chest. Abdomen/Pelvis CT 08/12/16 11:21 IMPRESSION: Cholelithiasis. No acute findings. Assessment & Plan - Diagnosis (1) Thrombocytopenia Is this a current diagnosis for this admission?: YesPlan: Likely related to immunosuppression from severe infection, looks like now pt w/ pyelonephritis and probable sepsis. Will monitor, other labs pending and will need f/u in clinic (2) Weight loss, non-intentional Is this a current diagnosis for this admission?: YesPlan: Likely related to recent infection and multiple surgeries recently, no evidence thus far malignancy (3) Pyelonephritis, acute Is this a current diagnosis for this admission?: YesPlan: Pyelonephritis w/ evidence prev of sepsis, now sepsis resolved, con't abx per hospitalist team - Time Time Spent with patient: 35 or more minutes Critical Time spent with patient: 35 or more minutes - Inpatient Certification Based on my medical assessment, after consideration of the patient's comorbidities, presenting symptoms, or acuity I expect that the services needed warrant INPATIENT care.: Yes I certify that my determination is in accordance with my understanding of Medicare's requirements for reasonable and necessary INPATIENT services [42 CFR 412.3e].: Yes Medical Necessity: Need for IV Antibiotics
[2016-08-13 08:00] LABS: ANION GAP 7 (5-19); BLOOD UREA NITROGEN 20 mg/dL (7-20); CALCIUM 7.8 mg/dL (8.4-10.2); CARBON DIOXIDE 31 mmol/L (22-30); CHLORIDE 96 mmol/L (98-107); CREATININE RESULT 0.73 mg/dL (0.52-1.25); GLUCOSE 216 mg/dL (75-110); POTASSIUM 4.5 mmol/L (3.6-5.0); SODIUM 133.6 mmol/L (137-145)
--- NOTE | 2016-08-13 09:38 | PDOC PROGRESS REPORT ---
Subjective Progress Note for:: 08/13/16 Subjective:: The patient is currently lying in bed. Patient does complain of lower back pain but notes improvement. The patient denies any nausea, vomiting, diarrhea, shortness of breath, dizziness, chest pain, heart palpitations, fevers, or chills. The patient spiked a fever overnight. Blood pressures have been in a good range. The patient voices no other concerns at this time. Review of systems: The rest of the review of systems is negative. Physical Exam Vital Signs: Temp Pulse Resp BP Pulse Ox 98.5 F 66 18 121/50 L 99 08/13/16 07:17 08/13/16 07:17 08/13/16 07:17 08/13/16 07:17 08/13/16 07:17 Intake & Output 08/11/16 08/12/16 08/13/16 23:59 23:59 23:59 Intake Total 1080 895 400 Output Total 1250 1000 Balance 7659 -205 -600 Weight 80.2 kg 79.6 kg 78.9 kg General appearance: PRESENT: no acute distress, cooperative, well-developed, well-nourished Head exam: PRESENT: atraumatic, normocephalic Eye exam: PRESENT: conjunctiva pink, EOMI, PERRLA. ABSENT: scleral icterus Ear exam: PRESENT: normal external ear exam Mouth exam: PRESENT: moist, tongue midline Neck exam: ABSENT: carotid bruit, JVD, lymphadenopathy, thyromegaly Respiratory exam: PRESENT: clear to auscultation cesar, symmetrical, unlabored. ABSENT: rales, rhonchi, tachypnea, wheezes Cardiovascular exam: PRESENT: RRR. ABSENT: diastolic murmur, rubs, systolic murmur Pulses: PRESENT: normal dorsalis pedis pul Vascular exam: PRESENT: normal capillary refill GI/Abdominal exam: PRESENT: normal bowel sounds, soft. ABSENT: distended, guarding, mass, organolmegaly, rebound, tenderness Rectal exam: PRESENT: deferred Extremities exam: PRESENT: full ROM. ABSENT: calf tenderness, clubbing, pedal edema Neurological exam: PRESENT: alert, awake, oriented to person, oriented to place , oriented to time, oriented to situation, CN II-XII grossly intact. ABSENT: motor sensory deficit Psychiatric exam: PRESENT: appropriate affect, normal mood. ABSENT: homicidal ideation, suicidal ideation Skin exam: PRESENT: dry, intact, warm. ABSENT: cyanosis, rash Results Laboratory Results: 08/13/16 06:58 08/13/16 06:58 08/12/16 08/13/16 08/13/16 04:29 06:58 06:58 WBC 8.4 RBC 4.05 L Hgb 11.2 L Hct 32.6 L MCV 81 MCH 27.6 MCHC 34.3 RDW 13.5 Plt Count 84 L Sodium 133.6 L Potassium 4.5 Chloride 96 L Carbon Dioxide 31 H Anion Gap 7 BUN 20 Creatinine 0.73 Est GFR ( Amer) > 60 Est GFR (Non-Af Amer) > 60 Glucose 216 H Calcium 7.8 L Iron 28.2 L TIBC 213 L % Saturation 13 Ferritin 833.00 H Vitamin B12 526.0 Impressions: Chest X-Ray 08/10/16 20:07 IMPRESSION: NO ACUTE RADIOGRAPHIC FINDING IN THE CHEST. NO SIGNIFICANT CHANGE FROM PRIOR STUDIES. Abdomen Ultrasound 08/11/16 00:00 IMPRESSION: CHOLELITHIASIS WITHOUT SONOGRAPHIC EVIDENCE OF CHOLECYSTITIS. MILD SPLENOMEGALY. Chest CT 08/12/16 00:00 IMPRESSION: No acute findings in the chest. Abdomen/Pelvis CT 08/12/16 11:21 IMPRESSION: Cholelithiasis. No acute findings. Assessment & Plan - Diagnosis (1) Pyelonephritis, acute Is this a current diagnosis for this admission?: YesPlan: Upon review of the records available through the patient's private portal it appears that his urinary tract infection was Klebsiella. Was able to view sensativities today. Given PCN allergies and Sulfa the only option appears to be Gent. Culture here is negative, but will repeat given re-spike in temperature. (2) Acute encephalopathy Is this a current diagnosis for this admission?: YesPlan: Secondary to #1 this is resolved. (3) Elevated LFTs Is this a current diagnosis for this admission?: YesPlan: Bilirubin actually has improved. Given the elevation alkaline phosphatase and findings on ultrasound splenomegaly discussed the case with hematology. Appreciate input. (4) Thrombocytopenia Is this a current diagnosis for this admission?: YesPlan: Given findings of elevated LFTs as well did consult hematology. Improved. (5) Pain in left shoulder Qualifiers: Chronicity: chronic Qualified Code(s): M25.512 - Pain in left shoulder Is this a current diagnosis for this admission?: Yes (6) Pain in right elbow Is this a current diagnosis for this admission?: Yes (7) Chronic back pain Qualifiers: Back pain location: low back pain Back pain laterality: unspecified Sciatica presence: without sciatica Qualified Code(s): M54.5 - Low back pain; G89.29 - Other chronic pain Is this a current diagnosis for this admission?: Yes (8) Diabetes mellitus type 1 Qualifiers: Diabetes mellitus complication status: with neurologic complications Diabetes mellitus complication detail: with unspecified neuropathy Qualified Code(s): E10.40 - Type 1 diabetes mellitus with diabetic neuropathy, unspecified Is this a current diagnosis for this admission?: Yes (9) S/P lobectomy of lung Is this a current diagnosis for this admission?: Yes - Time Time Spent with patient: 25-34 minutes Medications reviewed and adjusted accordingly: Yes Anticipated discharge: Home Within: within 24 hours, within 48 hours
[2016-08-13] MEDS ORDERED: GENTAMICIN SULFATE 0 MG in DEXTROSE 5%-WATER 100 ML IV NR (09:45)
[2016-08-13] MEDS ORDERED: AZITHROMYCIN 500 MG in DEXTROSE 5%-WATER 250 ML IV SCH (10:00)
[2016-08-13] MEDS ORDERED: CEFEPIME HCL 2 GM in DEXTROSE 5%-WATER 50 ML IV SCH (10:00)
[2016-08-13] MEDS: INSULIN LISPRO 100 UNIT/ML 3 ML VIAL SUBCUT PRN ×2 (12:41→18:18)
[2016-08-13] MEDS ORDERED: GENTAMICIN SULFATE 140 MG in DEXTROSE 5%-WATER 100 ML IV ONE (13:00)
[2016-08-13] MEDS: MORPHINE SULFATE 10 MG/ML INJ IV PRN (14:05)
[2016-08-13] MEDS: ACETAMINOPHEN 325 MG TABLET PO PRN (14:26)
[2016-08-13] MEDS: INSULIN GLARGINE,HUM.REC.ANLOG 300 UNIT/3 ML INSULN.PEN SUBCUT SCH (21:56)
[2016-08-13] MEDS: GENTAMICIN SULFATE 140 MG in DEXTROSE 5%-WATER 100 ML IV SCH (21:56)
[2016-08-14] MEDS: ACETAMINOPHEN 325 MG TABLET PO PRN ×3 (03:05→22:16)
[2016-08-14 05:56] LABS: HEMATOCRIT 31.8 % (37.9-51.0); HGB HCT DIFFERENCE 1.2; MEAN CORPUSCULAR HEMOGLOBIN 27.4 pg (27.0-33.4); MEAN CORPUSCULAR HGB CONC 34.6 g/dL (32.0-36.0); MEAN CORPUSCULAR VOLUME 79 fl (80-97); RED BLOOD COUNT 4.02 10^6/uL (4.35-5.55); RED CELL DISTRIBUTION WIDTH 13.7 % (11.5-14.0); WHITE BLOOD COUNT 11.9 10^3/uL (4.0-10.5)
[2016-08-14 06:13] LABS: ALANINE AMINOTRANSFERASE 55 U/L (21-72); ALBUMIN 2.6 g/dL (3.5-5.0); ALKALINE PHOSPHATASE 250 U/L (38-126); ANION GAP 9 (5-19); ASPARTATE AMINO TRANSFERASE 37 U/L (17-59); BILIRUBIN,DIRECT 0.5 mg/dL (0.0-0.4); BILIRUBIN,TOTAL 1.2 mg/dL (0.2-1.3); BLOOD UREA NITROGEN 18 mg/dL (7-20); CARBON DIOXIDE 28 mmol/L (22-30); CHLORIDE 95 mmol/L (98-107); CREATININE RESULT 0.77 mg/dL (0.52-1.25); GLUCOSE 102 mg/dL (75-110); POTASSIUM 4.2 mmol/L (3.6-5.0); SODIUM 132.1 mmol/L (137-145); TOTAL PROTEIN 5.1 g/dL (6.3-8.2)
[2016-08-14 06:39] LABS: IMMUNOGLOBULIN A 152 mg/dL (61-437); IMMUNOGLOBULIN G 619 mg/dL (700-1600)
[2016-08-14 07:42] LABS: IMMUNOGLOBULIN M 330 mg/dL (20-172)
--- NOTE | 2016-08-14 08:03 | PDOC PROGRESS REPORT ---
Subjective Progress Note for:: 08/14/16 Subjective:: Patient was confused overnight, spiked a fever to 102. His antibiotics were changed yesterday because of continued febrile. He has a sitter now, he is sleeping at this point. In review of his CBC his platelet count has recovered to 116. Physical Exam Vital Signs: Temp Pulse Resp BP Pulse Ox 98.6 F 101 H 18 171/76 H 92 08/14/16 06:43 08/14/16 07:00 08/14/16 03:04 08/14/16 03:04 08/14/16 03:04 Intake & Output 08/13/16 08/14/16 08/15/16 06:59 06:59 06:59 Intake Total 1085 2333 Output Total 1350 1250 Balance -265 1083 Weight 78.9 kg 79.1 kg General appearance: PRESENT: no acute distress, well-developed, well-nourished Head exam: PRESENT: atraumatic, normocephalic Eye exam: PRESENT: conjunctiva pink, EOMI, PERRLA. ABSENT: scleral icterus Ear exam: PRESENT: normal external ear exam Mouth exam: PRESENT: moist, tongue midline Neck exam: ABSENT: carotid bruit, JVD, lymphadenopathy, thyromegaly Respiratory exam: PRESENT: clear to auscultation cesar. ABSENT: rales, rhonchi, wheezes Cardiovascular exam: PRESENT: RRR. ABSENT: diastolic murmur, rubs, systolic murmur Pulses: PRESENT: normal dorsalis pedis pul Vascular exam: PRESENT: normal capillary refill GI/Abdominal exam: PRESENT: normal bowel sounds, soft. ABSENT: distended, guarding, mass, organolmegaly, rebound, tenderness Rectal exam: PRESENT: deferred Extremities exam: PRESENT: full ROM. ABSENT: calf tenderness, clubbing, pedal edema Neurological exam: PRESENT: alert, awake, oriented to person, oriented to place , oriented to time, oriented to situation, CN II-XII grossly intact. ABSENT: motor sensory deficit Psychiatric exam: PRESENT: appropriate affect, normal mood. ABSENT: homicidal ideation, suicidal ideation Skin exam: PRESENT: dry, intact, warm. ABSENT: cyanosis, rash Results Laboratory Results: 08/14/16 05:07 08/14/16 05:07 08/13/16 08/13/16 08/14/16 06:58 06:58 05:07 WBC 8.4 RBC 4.05 L Hgb 11.2 L Hct 32.6 L MCV 81 MCH 27.6 MCHC 34.3 RDW 13.5 Plt Count 84 L Sodium 133.6 L 132.1 L Potassium 4.5 4.2 Chloride 96 L 95 L Carbon Dioxide 31 H 28 Anion Gap 7 9 BUN 20 18 Creatinine 0.73 0.77 Est GFR ( Amer) > 60 > 60 Est GFR (Non-Af Amer) > 60 > 60 Glucose 216 H 102 Calcium 7.8 L 8.0 L Magnesium 2.0 Total Bilirubin 1.2 AST 37 ALT 55 Alkaline Phosphatase 250 H Total Protein 5.1 L Albumin 2.6 L 08/14/16 05:07 WBC 11.9 H RBC 4.02 L Hgb 11.0 L Hct 31.8 L MCV 79 L MCH 27.4 MCHC 34.6 RDW 13.7 Plt Count 116 L Sodium Potassium Chloride Carbon Dioxide Anion Gap BUN Creatinine Est GFR ( Amer) Est GFR (Non-Af Amer) Glucose Calcium Magnesium Total Bilirubin AST ALT Alkaline Phosphatase Total Protein Albumin Impressions: Chest X-Ray 08/10/16 20:07 IMPRESSION: NO ACUTE RADIOGRAPHIC FINDING IN THE CHEST. NO SIGNIFICANT CHANGE FROM PRIOR STUDIES. Abdomen Ultrasound 08/11/16 00:00 IMPRESSION: CHOLELITHIASIS WITHOUT SONOGRAPHIC EVIDENCE OF CHOLECYSTITIS. MILD SPLENOMEGALY. Chest CT 08/12/16 00:00 IMPRESSION: No acute findings in the chest. Abdomen/Pelvis CT 08/12/16 11:21 IMPRESSION: Cholelithiasis. No acute findings. Assessment & Plan - Diagnosis (1) Thrombocytopenia Is this a current diagnosis for this admission?: YesPlan: Secondary to myelosuppression from infection, unfortunately infection seems to be still going on, discussed case with hospitalist, agree that this probably is a gram-negative infection type issue, Klebsiella was the previous organism. It should've been sensitive to the previous antibiotics but we were thinking about the possibility of a previous prostatitis, may be sequestering the bacteria. And patient could've had a low-grade inflammatory/infective type situation ongoing for a while. Regardless, from a platelet standpoint he should recover within the next 1-2 weeks. (2) Weight loss, non-intentional Is this a current diagnosis for this admission?: YesPlan: Does not appear to be malignancy related, probably related to the infection. (3) Pyelonephritis, acute Is this a current diagnosis for this admission?: YesPlan: Continued antibiotics as above, still fairly severe. - Time Time Spent with patient: 25-34 minutes Critical Time spent with patient: 25-34 minutes - Inpatient Certification Based on my medical assessment, after consideration of the patient's comorbidities, presenting symptoms, or acuity I expect that the services needed warrant INPATIENT care.: Yes I certify that my determination is in accordance with my understanding of Medicare's requirements for reasonable and necessary INPATIENT services [42 CFR 412.3e].: Yes Medical Necessity: Need for IV Antibiotics, Risk of Complication if Not Cared For in Hospital
[2016-08-14] MEDS: GENTAMICIN SULFATE 140 MG in DEXTROSE 5%-WATER 100 ML IV SCH ×2 (09:36→22:16)
[2016-08-14 14:40] LABS: FREE KAPPA LIGHT CHAINS 33.12 mg/L (3.30-19.40); FREE LAMBDA LIGHT CHAINS 45.06 mg/L (5.71-26.30)
[2016-08-14 15:04] LABS: KAPPA LAMBDA RATIO 0.74 (0.26-1.65)
--- NOTE | 2016-08-14 19:30 | PDOC PROGRESS REPORT ---
Subjective Progress Note for:: 08/14/16 Subjective:: The patient is currently lying in bed. Patient notes overall improvement in his symptoms. The patient is quite eager for discharge. Shins platelet count has improved significantly. However overnight the patient developed confusion and is agitated. Patient has no recollection of any of this. The patient denies any nausea, vomiting, diarrhea, shortness of breath, dizziness, chest pain, heart palpitations, fevers, or chills. The patient spiked a fever overnight. Blood pressures have been in a good range. The patient voices no other concerns at this time. Review of systems: The rest of the review of systems is negative. Brief history: Mr. Pelaez is a 70-year-old male with no significant past medical history. The patient presented to his primary care provider's office a few days prior to presentation with complaints of urinary hesitancy and dysuria. The patient was diagnosed with prostatitis and UTI. Patient's urine culture came back with Klebsiella. The patient was treated with Cipro however his symptoms do persist and he came to the emergency department for evaluation. Upon presentation to the emergency department the patient was found to have a white count of 11, a temperature of 100.6. The patient was admitted initially started on cefepime. There was much concern over the patient 's penicillin allergy and after discussing back and forth patient has been transitioned to gentamicin. The patient had a significant elevation in his alkaline phosphatase as well as thrombocytopenia and significant weight loss over the past 6 months I discussed the case with Dr. Banegas. The patient was imaged by CT and only findings were consistent with pyelonephritis. Given patient and family uncertainties I did discuss the case with infectious disease and recommendations are noted below. Physical Exam Vital Signs: Temp Pulse Resp BP Pulse Ox 97.9 F 80 19 139/58 H 100 08/14/16 11:24 08/14/16 14:00 08/14/16 11:24 08/14/16 11:24 08/14/16 11:24 Intake & Output 08/12/16 08/13/16 08/14/16 23:59 23:59 23:59 Intake Total 895 2448 1293 Output Total 1250 1500 750 Balance -355 948 543 Weight 79.6 kg 78.9 kg 79.1 kg General appearance: PRESENT: no acute distress, cooperative, well-developed, well-nourished Head exam: PRESENT: atraumatic, normocephalic Eye exam: PRESENT: conjunctiva pink, EOMI, PERRLA. ABSENT: scleral icterus Ear exam: PRESENT: normal external ear exam Mouth exam: PRESENT: moist, tongue midline Neck exam: ABSENT: carotid bruit, JVD, lymphadenopathy, thyromegaly Respiratory exam: PRESENT: clear to auscultation cesar, symmetrical, unlabored. ABSENT: rales, rhonchi, tachypnea, wheezes Cardiovascular exam: PRESENT: RRR. ABSENT: diastolic murmur, rubs, systolic murmur Pulses: PRESENT: normal dorsalis pedis pul Vascular exam: PRESENT: normal capillary refill GI/Abdominal exam: PRESENT: normal bowel sounds, soft. ABSENT: distended, guarding, mass, organolmegaly, rebound, tenderness Rectal exam: PRESENT: deferred Extremities exam: PRESENT: full ROM. ABSENT: calf tenderness, clubbing, pedal edema Neurological exam: PRESENT: alert, awake, oriented to person, oriented to place , oriented to time, oriented to situation, CN II-XII grossly intact. ABSENT: motor sensory deficit Psychiatric exam: PRESENT: appropriate affect, normal mood. ABSENT: homicidal ideation, suicidal ideation Skin exam: PRESENT: dry, intact, warm. ABSENT: cyanosis, rash Results Laboratory Results: 08/14/16 05:07 08/14/16 05:07 08/14/16 08/14/16 05:07 05:07 WBC 11.9 H RBC 4.02 L Hgb 11.0 L Hct 31.8 L MCV 79 L MCH 27.4 MCHC 34.6 RDW 13.7 Plt Count 116 L Sodium 132.1 L Potassium 4.2 Chloride 95 L Carbon Dioxide 28 Anion Gap 9 BUN 18 Creatinine 0.77 Est GFR ( Amer) > 60 Est GFR (Non-Af Amer) > 60 Glucose 102 Calcium 8.0 L Magnesium 2.0 Total Bilirubin 1.2 AST 37 ALT 55 Alkaline Phosphatase 250 H Total Protein 5.1 L Albumin 2.6 L Impressions: Chest X-Ray 08/10/16 20:07 IMPRESSION: NO ACUTE RADIOGRAPHIC FINDING IN THE CHEST. NO SIGNIFICANT CHANGE FROM PRIOR STUDIES. Abdomen Ultrasound 08/11/16 00:00 IMPRESSION: CHOLELITHIASIS WITHOUT SONOGRAPHIC EVIDENCE OF CHOLECYSTITIS. MILD SPLENOMEGALY. Chest CT 08/12/16 00:00 IMPRESSION: No acute findings in the chest. Abdomen/Pelvis CT 08/12/16 11:21 IMPRESSION: Cholelithiasis. No acute findings. Assessment & Plan - Diagnosis (1) Pyelonephritis, acute Is this a current diagnosis for this admission?: YesPlan: Discussed the case with Dr. Rodriguez at infectious disease [facility] which was an agreement of the current treatment plan. Recommendations been made that if the patient remains afebrile overnight he can be discharged in the morning on a 10 day course of Keflex. (2) Acute encephalopathy Is this a current diagnosis for this admission?: YesPlan: Secondary to #1 this is resolved. (3) Elevated LFTs Is this a current diagnosis for this admission?: YesPlan: Bilirubin actually has improved. Given the elevation alkaline phosphatase and findings on ultrasound splenomegaly discussed the case with hematology. Appreciate input. (4) Thrombocytopenia Is this a current diagnosis for this admission?: YesPlan: Given findings of elevated LFTs as well did consult hematology. Improving. (5) Pain in left shoulder Qualifiers: Chronicity: chronic Qualified Code(s): M25.512 - Pain in left shoulder Is this a current diagnosis for this admission?: Yes (6) Pain in right elbow Is this a current diagnosis for this admission?: Yes (7) Chronic back pain Qualifiers: Back pain location: low back pain Back pain laterality: unspecified Sciatica presence: without sciatica Qualified Code(s): M54.5 - Low back pain; G89.29 - Other chronic pain Is this a current diagnosis for this admission?: Yes (8) Diabetes mellitus type 1 Qualifiers: Diabetes mellitus complication status: with neurologic complications Diabetes mellitus complication detail: with unspecified neuropathy Qualified Code(s): E10.40 - Type 1 diabetes mellitus with diabetic neuropathy, unspecified Is this a current diagnosis for this admission?: Yes (9) S/P lobectomy of lung Is this a current diagnosis for this admission?: Yes - Time Time Spent with patient: 35 or more minutes Medications reviewed and adjusted accordingly: Yes Anticipated discharge: Home Within: within 48 hours Disposition: The patient is a full code. Pending patient's symptomatology and diagnostic findings will reevaluate in the a.m.
[2016-08-14 22:08] LABS: CREATININE RESULT 0.86 mg/dL (0.52-1.25)
[2016-08-14 22:14] LABS: GENTAMICIN-TROUGH 1.6 ug/mL (<2.0)
[2016-08-15] MEDS ORDERED: INSULIN GLARGINE,HUM.REC.ANLOG 300 UNIT/3 ML INSULN.PEN SUBCUT ONE (00:46)
[2016-08-15] MEDS: INSULIN GLARGINE,HUM.REC.ANLOG 300 UNIT/3 ML INSULN.PEN SUBCUT SCH (00:50)
[2016-08-15 01:37] LABS: GENTAMICIN-PEAK 6.5 ug/mL (5.0-10.0)
--- NOTE | 2016-08-15 08:33 | PDOC PROGRESS REPORT ---
Subjective Progress Note for:: 08/15/16 Subjective:: Patient less confused over the last 24 hours, low-grade fevers Physical Exam Vital Signs: Temp Pulse Resp BP Pulse Ox 99.0 F 88 16 148/63 H 100 08/15/16 07:38 08/15/16 07:38 08/15/16 07:38 08/15/16 07:38 08/15/16 07:38 Intake & Output 08/14/16 08/15/16 08/16/16 06:59 06:59 06:59 Intake Total 2333 2050 Output Total 1250 1100 Balance 1083 950 Weight 79.1 kg 78.2 kg General appearance: PRESENT: no acute distress, well-developed, well-nourished Head exam: PRESENT: atraumatic, normocephalic Eye exam: PRESENT: conjunctiva pink, EOMI, PERRLA. ABSENT: scleral icterus Ear exam: PRESENT: normal external ear exam Mouth exam: PRESENT: moist, tongue midline Neck exam: ABSENT: carotid bruit, JVD, lymphadenopathy, thyromegaly Respiratory exam: PRESENT: clear to auscultation cesar. ABSENT: rales, rhonchi, wheezes Cardiovascular exam: PRESENT: RRR. ABSENT: diastolic murmur, rubs, systolic murmur Pulses: PRESENT: normal dorsalis pedis pul Vascular exam: PRESENT: normal capillary refill GI/Abdominal exam: PRESENT: normal bowel sounds, soft. ABSENT: distended, guarding, mass, organolmegaly, rebound, tenderness Rectal exam: PRESENT: deferred Extremities exam: PRESENT: full ROM. ABSENT: calf tenderness, clubbing, pedal edema Neurological exam: PRESENT: alert, awake, oriented to person, oriented to place , oriented to time, oriented to situation, CN II-XII grossly intact. ABSENT: motor sensory deficit Psychiatric exam: PRESENT: appropriate affect, normal mood. ABSENT: homicidal ideation, suicidal ideation Skin exam: PRESENT: dry, intact, warm. ABSENT: cyanosis, rash Results Laboratory Results: 08/14/16 05:07 08/14/16 21:45 08/14/16 21:45 Creatinine 0.86 Est GFR ( Amer) > 60 Est GFR (Non-Af Amer) > 60 Impressions: Chest X-Ray 08/10/16 20:07 IMPRESSION: NO ACUTE RADIOGRAPHIC FINDING IN THE CHEST. NO SIGNIFICANT CHANGE FROM PRIOR STUDIES. Abdomen Ultrasound 08/11/16 00:00 IMPRESSION: CHOLELITHIASIS WITHOUT SONOGRAPHIC EVIDENCE OF CHOLECYSTITIS. MILD SPLENOMEGALY. Chest CT 08/12/16 00:00 IMPRESSION: No acute findings in the chest. Abdomen/Pelvis CT 08/12/16 11:21 IMPRESSION: Cholelithiasis. No acute findings. Assessment & Plan - Diagnosis (1) Thrombocytopenia Is this a current diagnosis for this admission?: YesPlan: platelet count recovering, secondary to myelosuppression, thus far workup is negative for malignancy (2) Weight loss, non-intentional Is this a current diagnosis for this admission?: YesPlan: Don't believe there is any malignancy ongoing, myeloma labs thus far are non- specific. Today discuss this with family, spent about 40 minutes in discussion (3) Pyelonephritis, acute Is this a current diagnosis for this admission?: YesPlan: Improving, continue antibiotics per hospitalist team - Time Time Spent with patient: 35 or more minutes Critical Time spent with patient: 35 or more minutes
[2016-08-15] MEDS: ACETAMINOPHEN 325 MG TABLET PO PRN (09:08)
[2016-08-15] MEDS: GENTAMICIN SULFATE 140 MG in DEXTROSE 5%-WATER 100 ML IV SCH (09:09)
--- NOTE | 2016-08-15 11:28 | PDOC DISCHARGE SUMMARY ---
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 Free [place] LC, Quant Free Lambda LC, Quant Free [place]/Lambda Ratio Influenza A (Rapid) Influenza B (Rapid) Slides for Path Review 08/14/16 08/14/16 08/14/16 15:50 21:45 21:45 WBC RBC Hgb Hct MCV MCH MCHC RDW Plt Count Total Counted Seg Neutrophils % Seg Neuts % (Manual) Band Neutrophils % Lymphocytes % Lymphocytes % (Manual) Monocytes % Monocytes % (Manual) Eosinophils % Eosinophils % (Manual) Basophils % Basophils % (Manual) Absolute Neutrophils Abs Neuts (Manual) Absolute Lymphocytes Abs Lymphs (Manual) Absolute Monocytes Abs Monocytes (Manual) Absolute Eosinophils Absolute Eos (Manual) Absolute Basophils Abs Basophils (Manual) Platelet Estimate Large Platelets Platelet Comment Microcytosis ESR VBG pH VBG pCO2 VBG HCO3 VBG Base Excess Sodium Potassium Chloride Carbon Dioxide Anion Gap BUN Creatinine 0.86 Est GFR ( Amer) > 60 Est GFR (Non-Af Amer) > 60 Glucose POC Glucose 163 H Lactic Acid Calcium Magnesium Iron TIBC % Saturation Ferritin Total Bilirubin Direct Bilirubin Indirect Bilirubin Neonat Total Bilirubin AST ALT Alkaline Phosphatase Total Protein Albumin Vitamin B12 Immunoglobulin A Immunoglobulin G Immunoglobulin M Urine Color Urine Appearance Urine pH Ur Specific [place] Urine Protein Urine Glucose (UA) Urine Ketones Urine Blood Urine Nitrite Urine Bilirubin Urine Urobilinogen Ur Leukocyte Esterase Urine WBC (Auto) Urine RBC (Auto) Squamous Epi Cells Auto Urine Mucus (Auto) Urine Ascorbic Acid Dose Start Time Dose Stop Time Time Trough Drawn 2145 Time Peak Drawn Gentamicin Peak Gentamicin Trough 1.6 Anti-Nuclear Antibody Free [place] LC, Quant Free Lambda LC, Quant Free [place]/Lambda Ratio Influenza A (Rapid) Influenza B (Rapid) Slides for Path Review 08/14/16 08/15/16 08/15/16 22:32 00:35 06:13 WBC RBC Hgb Hct MCV MCH MCHC RDW Plt Count Total Counted Seg Neutrophils % Seg Neuts % (Manual) Band Neutrophils % Lymphocytes % Lymphocytes % (Manual) Monocytes % Monocytes % (Manual) Eosinophils % Eosinophils % (Manual) Basophils % Basophils % (Manual) Absolute Neutrophils Abs Neuts (Manual) Absolute Lymphocytes Abs Lymphs (Manual) Absolute Monocytes Abs Monocytes (Manual) Absolute Eosinophils Absolute Eos (Manual) Absolute Basophils Abs Basophils (Manual) Platelet Estimate Large Platelets Platelet Comment Microcytosis ESR VBG pH VBG pCO2 VBG HCO3 VBG Base Excess Sodium Potassium Chloride Carbon Dioxide Anion Gap BUN Creatinine Est GFR ( Amer) Est GFR (Non-Af Amer) Glucose POC Glucose 201 H 64 L Lactic Acid Calcium Magnesium Iron TIBC % Saturation Ferritin Total Bilirubin Direct Bilirubin Indirect Bilirubin Neonat Total Bilirubin AST ALT Alkaline Phosphatase Total Protein Albumin Vitamin B12 Immunoglobulin A Immunoglobulin G Immunoglobulin M Urine Color Urine Appearance Urine pH Ur Specific [place] Urine Protein Urine Glucose (UA) Urine Ketones Urine Blood Urine Nitrite Urine Bilirubin Urine Urobilinogen Ur Leukocyte Esterase Urine WBC (Auto) Urine RBC (Auto) Squamous Epi Cells Auto Urine Mucus (Auto) Urine Ascorbic Acid Dose Start Time 2216 Dose Stop Time 2355 Time Trough Drawn Time Peak Drawn 0035 Gentamicin Peak 6.5 Gentamicin Trough Anti-Nuclear Antibody Free [place] LC, Quant Free Lambda LC, Quant Free [place]/Lambda Ratio Influenza A (Rapid) Influenza B (Rapid) Slides for Path Review 08/15/16 06:51 WBC RBC Hgb Hct MCV MCH MCHC RDW Plt Count Total Counted Seg Neutrophils % Seg Neuts % (Manual) Band Neutrophils % Lymphocytes % Lymphocytes % (Manual) Monocytes % Monocytes % (Manual) Eosinophils % Eosinophils % (Manual) Basophils % Basophils % (Manual) Absolute Neutrophils Abs Neuts (Manual) Absolute Lymphocytes Abs Lymphs (Manual) Absolute Monocytes Abs Monocytes (Manual) Absolute Eosinophils Absolute Eos (Manual) Absolute Basophils Abs Basophils (Manual) Platelet Estimate Large Platelets Platelet Comment Microcytosis ESR VBG pH VBG pCO2 VBG HCO3 VBG Base Excess Sodium Potassium Chloride Carbon Dioxide Anion Gap BUN Creatinine Est GFR ( Amer) Est GFR (Non-Af Amer) Glucose POC Glucose 78 Lactic Acid Calcium Magnesium Iron TIBC % Saturation Ferritin Total Bilirubin Direct Bilirubin Indirect Bilirubin Neonat Total Bilirubin AST ALT Alkaline Phosphatase Total Protein Albumin Vitamin B12 Immunoglobulin A Immunoglobulin G Immunoglobulin M Urine Color Urine Appearance Urine pH Ur Specific [place] Urine Protein Urine Glucose (UA) Urine Ketones Urine Blood Urine Nitrite Urine Bilirubin Urine Urobilinogen Ur Leukocyte Esterase Urine WBC (Auto) Urine RBC (Auto) Squamous Epi Cells Auto Urine Mucus (Auto) Urine Ascorbic Acid Dose Start Time Dose Stop Time Time Trough Drawn Time Peak Drawn Gentamicin Peak Gentamicin Trough Anti-Nuclear Antibody Free [place] LC, Quant Free Lambda LC, Quant Free [place]/Lambda Ratio Influenza A (Rapid) Influenza B (Rapid) Slides for Path Review EKG Comments: NSR RBBB LAHB Impressions: Chest X-Ray 08/10/16 20:07 IMPRESSION: NO ACUTE RADIOGRAPHIC FINDING IN THE CHEST. NO SIGNIFICANT CHANGE FROM PRIOR STUDIES. Abdomen Ultrasound 08/11/16 00:00 IMPRESSION: CHOLELITHIASIS WITHOUT SONOGRAPHIC EVIDENCE OF CHOLECYSTITIS. MILD SPLENOMEGALY. Chest CT 08/12/16 00:00 IMPRESSION: No acute findings in the chest. Abdomen/Pelvis CT 08/12/16 11:21 IMPRESSION: Cholelithiasis. No acute findings. Plan Discharge Plan: Discharged home on 10 days of Keflex Follow-up with primary care Follow up with Dr. Banegas as planned Time Spent: Greater than 30 Minutes
[2016-08-15 11:40] LABS: ALBUMIN 3 2.1 g/dL (2.9-4.4); ALPHA-1-GLOBULIN 0.4 g/dL (0.0-0.4); ALPHA-2-GLOBULIN 3 0.8 g/dL (0.4-1.0); BETA GLOBULIN 0.7 g/dL (0.7-1.3); GLOBULIN TTL 2.6 g/dL (2.2-3.9); IMMUNOGLOBULIN A 155 mg/dL (61-437); IMMUNOGLOBULIN G 617 mg/dL (700-1600); IMMUNOGLOBULIN M 322 mg/dL (20-172); MONOCLONAL-SPIKE Not Observed g/dL (Not Observed); PROTEIN TOTAL SERUM 4.7 g/dL (6.0-8.5)
[2016-08-15] MEDS ORDERED: CEPHALEXIN 500 MG CAPSULE PO ONE (13:00)
[2016-08-15 14:31] VITALS: BP 134/52
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
== END 2016-08-15 15:19 | disposition home or self-care (01) | DRG 689 ==
LOC: ER 19:04 → UNDOADMIN 21:18 → EH 21:18 → 3W 08-11 00:17 → EH 08-11 00:17
PROVIDERS: ADMIT Family Medicine; ATTEND Family Medicine
DX: N10 Acute pyelonephritis (principal); G93.40 Encephalopathy, unspecified; D69.59 Other secondary thrombocytopenia; M19.90 Unspecified osteoarthritis, unspecified site; E10.40 Type 1 diabetes mellitus with diabetic neuropathy, unspecified; M54.9 Dorsalgia, unspecified; G89.29 Other chronic pain; M25.512 Pain in left shoulder; I10 Essential (primary) hypertension; B95.4 Other streptococcus as the cause of diseases classified elsewhere; L30.9 Dermatitis, unspecified; R63.4 Abnormal weight loss; H91.90 Unspecified hearing loss, unspecified ear; N41.9 Inflammatory disease of prostate, unspecified; Z88.0 Allergy status to penicillin; Z88.2 Allergy status to sulfonamides; Z87.11 Personal history of peptic ulcer disease; Z88.7 Allergy status to serum and vaccine; Z79.84 Long term (current) use of oral hypoglycemic drugs; Z79.899 Other long term (current) drug therapy; Z90.2 Acquired absence of lung [part of]; Z79.4 Long term (current) use of insulin
CPT/HCPCS: 36415; 71010; 71260; 74176; 74177; 76700; 80048; 80053; 80170; 81001; 82565; 82607; 82728; 82784; 82803; 82962; 83540; 83550; 83605; 83735; 83883; 85025; 85027; 85652; 86038; 86320; 87040; 87086; 87804; 88184; 88185; 93005; 93010; 94799; 96365; 96367; 96375; 99291; J0456; J0692; J1450; J1580; J1815; J1956; J2270; J3370; J3490; J7060; J7120

== ENCOUNTER 2016-09-09 10:56 | Emergency (ER) | payer MEDICARE, BC ==
[2016-09-09 11:13] VITALS: BP 98/55
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
[2016-09-09] MEDS: NORMAL SALINE 1000 ML 1,000 ML IV PRN ×2 (12:28→13:06)
[2016-09-09 12:51] LABS: ABSOLUTE EOSINOPHILS # (AUTO) 0.1 10^3/uL (0.0-0.6); ABSOLUTE LYMPHOCYTES (AUTO) 1.3 10^3/uL (0.5-4.7); ABSOLUTE MONOCYTES (AUTO) 0.5 10^3/uL (0.1-1.4); ABSOLUTE NEUT (AUTO) 4.3 10^3/uL (1.7-8.2); BASOPHILS % (AUTO) 0.4 % (0-2); EOSINOPHILS % (AUTO) 2.1 % (0-6); HEMATOCRIT 37.7 % (37.9-51.0); HEMOGLOBIN 12.6 g/dL (13.5-17.0); HGB HCT DIFFERENCE 0.1; LYMPHOCYTES % (AUTO) 20.2 % (13-45); MEAN CORPUSCULAR HEMOGLOBIN 27.2 pg (27.0-33.4); MEAN CORPUSCULAR HGB CONC 33.3 g/dL (32.0-36.0); MEAN CORPUSCULAR VOLUME 82 fl (80-97); MONOCYTES % (AUTO) 8.7 % (3-13); RED BLOOD COUNT 4.62 10^6/uL (4.35-5.55); RED CELL DISTRIBUTION WIDTH 15.8 % (11.5-14.0); SEGMENTED NEUTROPHILS % (AUTO) 68.6 % (42-78); WHITE BLOOD COUNT 6.2 10^3/uL (4.0-10.5)
[2016-09-09 13:09] LABS: ALANINE AMINOTRANSFERASE 41 U/L (21-72); ALBUMIN 3.9 g/dL (3.5-5.0); ALKALINE PHOSPHATASE 130 U/L (38-126); ANION GAP 12 (5-19); ASPARTATE AMINO TRANSFERASE 27 U/L (17-59); BILIRUBIN,DIRECT 0.3 mg/dL (0.0-0.4); BILIRUBIN,TOTAL 0.6 mg/dL (0.2-1.3); BLOOD UREA NITROGEN 18 mg/dL (7-20); CALCIUM 9.8 mg/dL (8.4-10.2); CARBON DIOXIDE 30 mmol/L (22-30); CHLORIDE 102 mmol/L (98-107); CREATINE KINASE 70 U/L (55-170); CREATININE RESULT 0.86 mg/dL (0.52-1.25); GLUCOSE 168 mg/dL (75-110); LIPASE 52.5 U/L (23-300); POTASSIUM 4.6 mmol/L (3.6-5.0); SODIUM 143.6 mmol/L (137-145); TOTAL PROTEIN 7.5 g/dL (6.3-8.2)
[2016-09-09 13:30] LABS: TROPONIN I < 0.012 ng/mL
[2016-09-09] MEDS ORDERED: NORMAL SALINE 1000 ML 1,000 ML IV ONE (13:58)
[2016-09-09 14:18] LABS: APPEARANCE,URINE CLOUDY; BILIRUBIN,URINE NEGATIVE (NEGATIVE); GLUCOSE, URINE 50 mg/dL (NEGATIVE); KETONES,URINE NEGATIVE (NEGATIVE); LEUKOCYTE ESTERASE,URINE LARGE (NEGATIVE); NITRITE,URINE POSITIVE (NEGATIVE); PROTEIN,URINE NEGATIVE (NEGATIVE); URINE SPECIFIC GRAVITY 1.011; UROBILINOGEN,URINE NEGATIVE mg/dL (<2.0)
[2016-09-09] MEDS ORDERED: NITROFURANTOIN MONOHYD/M-CRYST 100 MG CAPSULE PO ONE (14:44)
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
--- NOTE | 2016-09-09 17:14 | EKG REPORT ---
SEVERITY:- ABNORMAL ECG - SINUS RHYTHM RBBB AND LAFB : Confirmed by: Tess Ramirez MD 09-Sep-2016 17:12:54
== END 2016-09-09 16:30 | disposition home or self-care (01) ==
LOC: ER 10:56
DX: I95.1 Orthostatic hypotension (principal); N30.00 Acute cystitis without hematuria; Z87.440 Personal history of urinary (tract) infections; Z86.69 Personal history of other diseases of the nervous system and sense organs; Z90.2 Acquired absence of lung [part of]; Z87.01 Personal history of pneumonia (recurrent); Z86.19 Personal history of other infectious and parasitic diseases
CPT/HCPCS: 93005; 99284; 96360; 96361; 36415; 87040; 87086; 82550; 83690; 85025; 80053; 81001; 84484; 83605; 83880; 71020; 93010; J7030; A9270; J8499

== ENCOUNTER → 2016-09-26 | Outpatient (CLI) | payer MEDICARE, BC ==
--- NOTE | 2016-09-26 14:47 | RADIOLOGY REPORT (SQ) ---
EXAM DESCRIPTION: ABDOMEN 2 VIEWS COMPLETED DATE/TIME: 09/26/2016 2:37 pm REASON FOR STUDY: IBS,CONSTIPATION,BENIGN PROSTATIC HYPERPLASIA WITH LOWER URINARY TRACT SYMP K58.9 IRRITABLE BOWEL SYNDROME WITHOUT DIARRHEA K59.00 CONSTIPATION, UNSPECIFIED N40.1 BENIGN PROSTATIC HYPERPLASIA WITH LOWER URINARY TRACT COMPARISON: 03/13/2016 NUMBER OF VIEWS: Two views. TECHNIQUE: Supine and erect/decubitus radiographic images of the abdomen acquired. LIMITATIONS: None. FINDINGS: FREE AIR: None. No abnormal gas collections. LUNG BASES: Clear. BOWEL GAS PATTERN: Nonobstructive pattern. No dilated loops or air fluid levels. CALCIFICATIONS: No suspicious calcifications. SOFT TISSUES: No gross mass or suggestion of organomegaly. HARDWARE: None in the abdomen. BONES: No acute fracture. No worrisome bone lesions. OTHER: No other significant finding. IMPRESSION: NO RADIOGRAPHIC EVIDENCE FOR ACUTE ABDOMINAL DISEASE. TECHNICAL DOCUMENTATION: JOB ID: [id number] [employer]- All Rights Reserved
== END ==
LOC: OD 14:22
PROVIDERS: ATTEND Urology
DX: K58.9 Irritable bowel syndrome, unspecified (principal); K59.00 Constipation, unspecified; N40.1 Benign prostatic hyperplasia with lower urinary tract symptoms
CPT/HCPCS: 74020

== ENCOUNTER → 2016-11-19 | Outpatient (CLI) | payer MEDICARE, BC ==
[2016-11-19 10:10] LABS: ABSOLUTE EOSINOPHILS # (AUTO) 0.4 10^3/uL (0.0-0.6); ABSOLUTE LYMPHOCYTES (AUTO) 1.3 10^3/uL (0.5-4.7); ABSOLUTE MONOCYTES (AUTO) 0.6 10^3/uL (0.1-1.4); ABSOLUTE NEUT (AUTO) 4.4 10^3/uL (1.7-8.2); BASOPHILS % (AUTO) 0.6 % (0-2); EOSINOPHILS % (AUTO) 5.3 % (0-6); HEMATOCRIT 39.9 % (37.9-51.0); HEMOGLOBIN 14.2 g/dL (13.5-17.0); HGB HCT DIFFERENCE 2.7; LYMPHOCYTES % (AUTO) 19.3 % (13-45); MEAN CORPUSCULAR HEMOGLOBIN 29.2 pg (27.0-33.4); MEAN CORPUSCULAR HGB CONC 35.5 g/dL (32.0-36.0); MEAN CORPUSCULAR VOLUME 82 fl (80-97); MONOCYTES % (AUTO) 9.2 % (3-13); RED BLOOD COUNT 4.85 10^6/uL (4.35-5.55); RED CELL DISTRIBUTION WIDTH 14.3 % (11.5-14.0); SEGMENTED NEUTROPHILS % (AUTO) 65.6 % (42-78); WHITE BLOOD COUNT 6.7 10^3/uL (4.0-10.5)
[2016-11-19 10:46] LABS: ALANINE AMINOTRANSFERASE 43 U/L (21-72); ALBUMIN 4.3 g/dL (3.5-5.0); ALKALINE PHOSPHATASE 124 U/L (38-126); ANION GAP 14 (5-19); ASPARTATE AMINO TRANSFERASE 31 U/L (17-59); BILIRUBIN,DIRECT 0.4 mg/dL (0.0-0.4); BILIRUBIN,TOTAL 0.5 mg/dL (0.2-1.3); BLOOD UREA NITROGEN 25 mg/dL (7-20); CALCIUM 9.7 mg/dL (8.4-10.2); CARBON DIOXIDE 28 mmol/L (22-30); CHLORIDE 102 mmol/L (98-107); CREATININE RESULT 0.86 mg/dL (0.52-1.25); GLUCOSE 129 mg/dL (75-110); POTASSIUM 4.7 mmol/L (3.6-5.0); SODIUM 143.5 mmol/L (137-145); TOTAL PROTEIN 7.8 g/dL (6.3-8.2)
== END ==
LOC: OD 09:18
PROVIDERS: ATTEND Urology
DX: N41.1 Chronic prostatitis (principal); K58.9 Irritable bowel syndrome, unspecified; K59.00 Constipation, unspecified; E13.9 Other specified diabetes mellitus without complications; R97.20 Elevated prostate specific antigen [PSA]
CPT/HCPCS: 36415; 80053; 83036; 84153; 85025

== ENCOUNTER → 2017-07-04 | Outpatient (CLI) | payer MEDICARE, BC ==
[2017-07-04 13:52] LABS: ABSOLUTE EOSINOPHILS # (AUTO) 0.2 10^3/uL (0.0-0.6); ABSOLUTE LYMPHOCYTES (AUTO) 0.9 10^3/uL (0.5-4.7); ABSOLUTE MONOCYTES (AUTO) 0.5 10^3/uL (0.1-1.4); BASOPHILS % (AUTO) 0.4 % (0-2); EOSINOPHILS % (AUTO) 3.9 % (0-6); HEMATOCRIT 38.1 % (37.9-51.0); LYMPHOCYTES % (AUTO) 15.4 % (13-45); MEAN CORPUSCULAR HGB CONC 34.2 g/dL (32.0-36.0); MEAN CORPUSCULAR VOLUME 82 fl (80-97); MONOCYTES % (AUTO) 9.5 % (3-13); PLATELET COUNT 148 10^3/uL (150-450); RED BLOOD COUNT 4.67 10^6/uL (4.35-5.55); RED CELL DISTRIBUTION WIDTH 13.6 % (11.5-14.0); SEGMENTED NEUTROPHILS % (AUTO) 70.8 % (42-78); TOTAL CELLS COUNTED % (AUTO) 100 %; WHITE BLOOD COUNT 5.7 10^3/uL (4.0-10.5)
[2017-07-04 14:07] LABS: ALANINE AMINOTRANSFERASE 58 U/L (21-72); ALKALINE PHOSPHATASE 86 U/L (38-126); ANION GAP 7 (5-19); ASPARTATE AMINO TRANSFERASE 37 U/L (17-59); BILIRUBIN,DIRECT 0.5 mg/dL (0.0-0.4); BILIRUBIN,TOTAL 0.6 mg/dL (0.2-1.3); BLOOD UREA NITROGEN 20 mg/dL (7-20); CALCIUM 9.3 mg/dL (8.4-10.2); CARBON DIOXIDE 28 mmol/L (22-30); CHLORIDE 106 mmol/L (98-107); GLUCOSE 154 mg/dL (75-110); POTASSIUM 4.8 mmol/L (3.6-5.0); TOTAL PROTEIN 6.5 g/dL (6.3-8.2)
== END ==
LOC: OD 12:35
PROVIDERS: ATTEND Urology
DX: K58.9 Irritable bowel syndrome, unspecified (principal); E13.9 Other specified diabetes mellitus without complications; K59.00 Constipation, unspecified; N41.1 Chronic prostatitis; N40.1 Benign prostatic hyperplasia with lower urinary tract symptoms; N31.9 Neuromuscular dysfunction of bladder, unspecified
CPT/HCPCS: 36415; 80053; 83036; 85025

== ENCOUNTER 2018-12-07 19:48 | Inpatient (IN) | payer MEDICARE, BC ==
[2018-12-07 21:40] LABS: HEMATOCRIT 36.7 % (37.9-51.0); HEMOGLOBIN 12.4 g/dL (13.5-17.0); MEAN CORPUSCULAR HEMOGLOBIN 28.6 pg (27.0-33.4); MEAN CORPUSCULAR HGB CONC 33.9 g/dL (32.0-36.0); MEAN CORPUSCULAR VOLUME 85 fl (80-97); PLATELET COUNT 165 10^3/uL (150-450); RED BLOOD COUNT 4.35 10^6/uL (4.35-5.55); RED CELL DISTRIBUTION WIDTH 13.2 % (11.5-14.0); WHITE BLOOD COUNT 13.4 10^3/uL (4.0-10.5)
[2018-12-07 21:44] LABS: INTERNATIONAL RATION (INR) 1.05; PROTHROMBIN TIME 13.7 SEC (11.4-15.4)
[2018-12-07 21:49] LABS: VENOUS BLOOD BASE EXCESS 1.6 mmol/L; VENOUS BLOOD HCO3 26.5 mmol/L (20-32); VENOUS BLOOD PCO2 42.4 mmHg (35-63); VENOUS BLOOD PH 7.41 (7.30-7.42)
[2018-12-07 21:56] LABS: ALBUMIN 3.9 g/dL (3.5-5.0); ALKALINE PHOSPHATASE 100 U/L (38-126); ANION GAP 11 (5-19); ASPARTATE AMINO TRANSFERASE 23 U/L (17-59); BILIRUBIN,DIRECT 0.3 mg/dL (0.0-0.4); BILIRUBIN,TOTAL 0.9 mg/dL (0.2-1.3); BLOOD UREA NITROGEN 33 mg/dL (7-20); CARBON DIOXIDE 24 mmol/L (22-30); CHLORIDE 97 mmol/L (98-107); GLUCOSE 237 mg/dL (75-110); POTASSIUM 4.5 mmol/L (3.6-5.0); TOTAL PROTEIN 6.7 g/dL (6.3-8.2)
[2018-12-07 22:02] LABS: ABSOLUTE LYMPHOCYTES# (MANUAL) 0.5 10^3/uL (0.5-4.7); ABSOLUTE MONOCYTES # (MANUAL) 0.9 10^3/uL (0.1-1.4); BASOPHILS % (MANUAL) 0 % (0-2); EOSINOPHILS % (MANUAL) 0 % (0-6); LYMPHOCYTES % (MANUAL) 4 % (13-45); MONOCYTES % (MANUAL) 7 % (3-13); RBC MORPHOLOGY COMMENT NORMO-CYTIC/CHROMIC; SEGMENTED NEUTROPHILS % (MAN) 89 % (42-78); TOTAL CELLS COUNTED 100
[2018-12-07 22:03] LABS: PLATELET COMMENT ADEQUATE
[2018-12-07] MEDS ORDERED: NORMAL SALINE 1000 ML 1,000 ML IV ONE ×2 (22:33→23:35)
[2018-12-07] MEDS ORDERED: CEFEPIME 2 GM/D5W RTU 2 GM/50 ML RTUPB IV ONE (23:20)
[2018-12-07] MEDS ORDERED: VANCOMYCIN HCL INJ 1000 MG VIAL IV ONE (23:20)
--- NOTE | 2018-12-08 00:12 | RADIOLOGY REPORT (SQ) ---
EXAM DESCRIPTION: XR CHEST 1 VIEW COMPLETED DATE/TME: 12/07/2018 00:00 CLINICAL HISTORY: 72 years, Male, fever COMPARISON: Prior study from 09/09/2016 NUMBER OF VIEWS: One TECHNIQUE: Single frontal view of the chest was obtained portably LIMITATIONS: None FINDINGS: Cardiac and mediastinal contours are stable. Band of opacity are noted about the right lung base, indicating areas of atelectasis or scar. The right hemidiaphragm is elevated, unchanged. No pneumothorax or large pleural effusion. IMPRESSION: No acute disease. copyright 2010 [employer]- All Rights Reserved
[2018-12-08 00:13] LABS: APPEARANCE,URINE SLIGHTLY-CLOUDY; BILIRUBIN,URINE NEGATIVE (NEGATIVE); COLOR,URINE YELLOW; GLUCOSE, URINE >=500 mg/dL (NEGATIVE); KETONES,URINE TRACE mg/dL (NEGATIVE); LEUKOCYTE ESTERASE,URINE TRACE (NEGATIVE); NITRITE,URINE NEGATIVE (NEGATIVE); PROTEIN,URINE NEGATIVE (NEGATIVE); URINE SPECIFIC GRAVITY 1.012; UROBILINOGEN,URINE NEGATIVE mg/dL (<2.0)
--- NOTE | 2018-12-08 00:36 | EKG REPORT ---
SEVERITY:- ABNORMAL ECG - SINUS RHYTHM RBBB AND LAFB : Confirmed by: Indio Chen 08-Dec-2018 00:35:20
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
[2018-12-08] MEDS ORDERED: NORMAL SALINE 1000 ML 1,000 ML IV PRN (02:23)
[2018-12-08] MEDS ORDERED: ACETAMINOPHEN 325 MG TABLET PO PRN (02:23)
[2018-12-08] MEDS ORDERED: DEXTROSE 40% GEL 15 GM TUBE PO PRN ×2 (07:05)
[2018-12-08] MEDS ORDERED: DEXTROSE 50%-WATER 25 GM/50 ML DISP.SYRIN IV PRN ×2 (07:05)
[2018-12-08] MEDS ORDERED: GLUCAGON,HUMAN RECOMB 1 MG INJ IM PRN (07:05)
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
[2018-12-08] MEDS: BACITRACIN ZINC OINTMENT 15 GM TP SCH (09:18)
[2018-12-08] MEDS: INSULIN LISPRO 100 UNIT/ML 3 ML VIAL SUBCUT SCH ×4 (09:18→22:14)
[2018-12-08] MEDS: ENOXAPARIN SODIUM INJ 40 MG/0.4 ML DISP.SYRIN SUBCUT SCH (09:19)
[2018-12-08] MEDS: CEFEPIME HCL 2 GM in DEXTROSE 5%-WATER 50 ML IV SCH ×2 (09:19→22:14)
[2018-12-08] MEDS ORDERED: CEFEPIME 2 GM/D5W RTU 2 GM/50 ML RTUPB IV SCH (10:00)
[2018-12-08] MEDS ORDERED: IPRATROPIUM/ALBUTEROL 0.5-2.5 MG/3 ML AMPUL NEB PRN ×2 (10:04→10:30)
[2018-12-08] MEDS ORDERED: IPRATROPIUM/ALBUTEROL 0.5-2.5 MG/3 ML AMPUL NEB ONE ×2 (10:15)
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
[2018-12-08] MEDS: METFORMIN HCL 500 MG TABLET PO SCH (17:18)
[2018-12-08] MEDS ORDERED: (PENDING PHARMACY ID) (Metformin Hcl [Metformin Hcl Er] 1,000 MG) PO SCH (18:00)
[2018-12-08] MEDS: INSULIN GLARGINE,HUM.REC.ANLOG 1,000 UNIT/10 ML VIAL SUBCUT SCH (22:14)
[2018-12-09] MEDS: ACETAMINOPHEN 325 MG TABLET PO PRN ×2 (00:28→21:56)
[2018-12-09] MEDS: DIPHENHYDRAMINE HCL 25 MG CAPSULE PO PRN ×2 (00:28→21:56)
[2018-12-09 06:18] LABS: ABSOLUTE EOSINOPHILS # (AUTO) 0.1 10^3/uL (0.0-0.6); ABSOLUTE MONOCYTES (AUTO) 0.9 10^3/uL (0.1-1.4); ABSOLUTE NEUT (AUTO) 5.2 10^3/uL (1.7-8.2); BASOPHILS % (AUTO) 0.3 % (0-2); EOSINOPHILS % (AUTO) 1.9 % (0-6); HEMOGLOBIN 10.9 g/dL (13.5-17.0); LYMPHOCYTES % (AUTO) 13.9 % (13-45); MEAN CORPUSCULAR HEMOGLOBIN 28.9 pg (27.0-33.4); MEAN CORPUSCULAR HGB CONC 34.2 g/dL (32.0-36.0); MEAN CORPUSCULAR VOLUME 85 fl (80-97); MONOCYTES % (AUTO) 11.8 % (3-13); PLATELET COUNT 152 10^3/uL (150-450); RED BLOOD COUNT 3.78 10^6/uL (4.35-5.55); RED CELL DISTRIBUTION WIDTH 13.3 % (11.5-14.0); SEGMENTED NEUTROPHILS % (AUTO) 72.1 % (42-78); TOTAL CELLS COUNTED % (AUTO) 100 %; WHITE BLOOD COUNT 7.3 10^3/uL (4.0-10.5)
[2018-12-09 06:39] LABS: ANION GAP 9 (5-19); BLOOD UREA NITROGEN 20 mg/dL (7-20); CALCIUM 8.3 mg/dL (8.4-10.2); CARBON DIOXIDE 23 mmol/L (22-30); CHLORIDE 108 mmol/L (98-107); POTASSIUM 3.9 mmol/L (3.6-5.0)
[2018-12-09 06:48] LABS: GLUCOSE 65 mg/dL (75-110)
[2018-12-09] MEDS: METFORMIN HCL 500 MG TABLET PO SCH ×3 (08:24→17:50)
[2018-12-09] MEDS: INSULIN LISPRO 100 UNIT/ML 3 ML VIAL SUBCUT SCH ×4 (08:25→21:50)
[2018-12-09] MEDS: ENOXAPARIN SODIUM INJ 40 MG/0.4 ML DISP.SYRIN SUBCUT SCH (09:40)
[2018-12-09] MEDS: PIOGLITAZONE HCL 30 MG TABLET PO SCH (09:41)
[2018-12-09] MEDS: BACITRACIN ZINC OINTMENT 15 GM TP SCH (10:36)
[2018-12-09] MEDS: CEFEPIME HCL 2 GM in DEXTROSE 5%-WATER 50 ML IV SCH ×2 (10:36→21:56)
--- NOTE | 2018-12-09 14:29 | Progress Note Acknowledgement ---
Progress Note Acknowledgement Progess Note Acknowledgement: I, the undersigned member of the medical staff with appropriate privileges and with supervisory authority over [ PAC ], a dependent practice allied health professional, acknowledge that I have reviewed the progress notes entered on this patient, and in my professional judgment believe that the assessment made and/or any care evidenced was appropriate
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
[2018-12-09] MEDS: INSULIN GLARGINE,HUM.REC.ANLOG 1,000 UNIT/10 ML VIAL SUBCUT SCH (21:57)
[2018-12-10 08:03] LABS: ABSOLUTE EOSINOPHILS # (AUTO) 0.1 10^3/uL (0.0-0.6); ABSOLUTE LYMPHOCYTES (AUTO) 0.9 10^3/uL (0.5-4.7); ABSOLUTE MONOCYTES (AUTO) 0.5 10^3/uL (0.1-1.4); ABSOLUTE NEUT (AUTO) 3.2 10^3/uL (1.7-8.2); BASOPHILS % (AUTO) 0.7 % (0-2); EOSINOPHILS % (AUTO) 3.1 % (0-6); HEMATOCRIT 32.5 % (37.9-51.0); LYMPHOCYTES % (AUTO) 17.9 % (13-45); MEAN CORPUSCULAR HEMOGLOBIN 28.8 pg (27.0-33.4); MEAN CORPUSCULAR HGB CONC 33.8 g/dL (32.0-36.0); MEAN CORPUSCULAR VOLUME 85 fl (80-97); MONOCYTES % (AUTO) 11.2 % (3-13); PLATELET COUNT 154 10^3/uL (150-450); RED BLOOD COUNT 3.82 10^6/uL (4.35-5.55); SEGMENTED NEUTROPHILS % (AUTO) 67.1 % (42-78); TOTAL CELLS COUNTED % (AUTO) 100 %; WHITE BLOOD COUNT 4.8 10^3/uL (4.0-10.5)
[2018-12-10] MEDS: METFORMIN HCL 500 MG TABLET PO SCH (08:19)
[2018-12-10] MEDS: INSULIN LISPRO 100 UNIT/ML 3 ML VIAL SUBCUT SCH (08:20)
[2018-12-10 08:36] LABS: ANION GAP 7 (5-19); BLOOD UREA NITROGEN 19 mg/dL (7-20); CALCIUM 8.7 mg/dL (8.4-10.2); CARBON DIOXIDE 26 mmol/L (22-30); CHLORIDE 107 mmol/L (98-107); GLUCOSE 173 mg/dL (75-110)
[2018-12-10] MEDS: PIOGLITAZONE HCL 30 MG TABLET PO SCH (10:33)
[2018-12-10] MEDS: BACITRACIN ZINC OINTMENT 15 GM TP SCH (10:33)
[2018-12-10] MEDS: ENOXAPARIN SODIUM INJ 40 MG/0.4 ML DISP.SYRIN SUBCUT SCH (10:35)
[2018-12-10 11:07] VITALS: BP 155/68
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
== END 2018-12-10 11:24 | disposition home or self-care (01) | DRG 603 ==
LOC: ER 19:48 → EH 12-08 02:24 → OBSVTOIN 12-08 02:24 → 3S 12-08 05:51
PROVIDERS: ADMIT Family Medicine; ATTEND Family Medicine
DX: L03.114 Cellulitis of left upper limb (principal); T22.212A Burn of second degree of left forearm, initial encounter; L03.113 Cellulitis of right upper limb; E11.9 Type 2 diabetes mellitus without complications; T22.211A Burn of second degree of right forearm, initial encounter; X17.XXXA Contact with hot engines, machinery and tools, initial encounter; E86.0 Dehydration; M54.9 Dorsalgia, unspecified; G40.909 Epilepsy, unspecified, not intractable, without status epilepticus; M19.90 Unspecified osteoarthritis, unspecified site; Y99.0 Civilian activity done for income or pay; Z88.0 Allergy status to penicillin; Z79.4 Long term (current) use of insulin; Z91.81 History of falling
CPT/HCPCS: 36415; 71045; 80048; 80053; 81001; 82803; 82962; 83605; 85025; 85610; 87040; 87086; 93005; 93010; 96361; 96365; 96367; 99285; J0692; J1815; J3370; J3490; J7030; J7060